=== PATIENT | male | born 1955 | race Caucasian/White ===

== ENCOUNTER 2017-11-23 16:57 | Emergency (ER) | payer MEDICARE ==
[~2017-11-23] VITALS: Ht 180.3 cm; Wt 91.0 kg
[~2017-11-23 16:57] MED LIST: ALPR0.25 PO; ASPI-496 PO; ASPI-650 PO; BACL20TA PO; CARB200T4 PO; CITA20TA9 PO; CYCL-259 PO; DONE5TAB7 PO; FOLI0.8T2 PO; GABA400C PO; LISI-167 PO; LOVA20TA2 PO; METO25TA4 PO; MORP-52 PO; OMEP-110 PO; OXYC10TA47 PO; OXYC1TAB9 PO; PRED50TA PO; RISP2TAB35 PO; SENN1TAB7 PO; TEMA15CA6 PO
[2017-11-23] MEDS ORDERED: HYDROcodone/APAP 5/325 TABLET ONE (17:21)
[2017-11-23 17:28] VITALS: BP 113/57
[2017-11-23] MEDS ORDERED: HYDROcodone/APAP 5/325 TABLET PO ONE (17:30)
[2017-11-23 17:54] LABS: BASOPHILS # (AUTO) 0.12 x10^3/uL (0-0.1); BASOPHILS % (AUTO) 1 % (0-1); EOSINOPHILS # (AUTO) 0.08 x10^3/uL (0-0.4); EOSINOPHILS % (AUTO) 1 % (1-7); LYMPHOCYTES # (AUTO) 2.08 x10^3/uL (1-3.4); LYMPHOCYTES % (AUTO) 24 % (22-44); MD NO; MEAN CORPUSCULAR HEMOGLOBIN 31.8 pg (27.5-34.5); MEAN CORPUSCULAR HGB CONC 33.1 g/dL (33.2-36.2); MEAN CORPUSCULAR VOLUME 95.9 fL (81-97); MEAN PLATELET VOLUME 8.3 fL (7.4-10.4); MONOCYTES # (AUTO) 0.69 x10^3/uL (0.2-0.8); MONOCYTES % (AUTO) 8 % (2-9); NEUTROPHILS # (AUTO) 5.76 x10^3/uL (1.8-6.8); NEUTROPHILS % (AUTO) 66 % (42-75); PLATELET COUNT 299 x10^3/uL (130-400); RED BLOOD COUNT 4.07 x10^6/uL (4.38-5.82); RED CELL DISTRIBUTION WIDTH 13.5 % (9.4-14.8)
[2017-11-23 18:04] LABS: PROTHROMBIN TIME 10.4 Seconds (9.6-11.5)
[2017-11-23 18:05] LABS: ALBUMIN 3.6 g/dL (3.4-5.0); ANION GAP 13 mmol/L (5-15); CALCIUM 7.9 mg/dL (8.5-10.1); CHLORIDE 112 mmol/L (98-107)
[2017-11-23 18:11] LABS: ALANINE AMINOTRANSFERASE 22 U/L (12-78); ALKALINE PHOSPHATASE 107 U/L (45-117); BILIRUBIN,TOTAL 0.2 mg/dL (0.2-1.0); CREATININE 1.16 mg/dL (0.7-1.3); TROPONIN I < 0.015 ng/mL (0.000-0.045)
[2017-11-23] MEDS ORDERED: MORPHINE SULFATE 4 MG/ML, 1ML ONE (18:26)
[2017-11-23] MEDS ORDERED: MORPHINE SULFATE 4 MG/ML, 1ML IVPush PRN (18:30)
== END 2017-11-23 18:51 | disposition left against medical advice (07) ==
LOC: ED 18:45
DX: R07.89 Other chest pain (principal); I10 Essential (primary) hypertension; E78.5 Hyperlipidemia, unspecified; F31.9 Bipolar disorder, unspecified; G30.9 Alzheimer's disease, unspecified; F02.80 Dementia in other diseases classified elsewhere, unspecified severity, without behavioral disturbance, psychotic disturbance, mood disturbance, and anxiety; F17.200 Nicotine dependence, unspecified, uncomplicated
CPT/HCPCS: 36415; 71045; 80053; 83690; 84484; 85025; 85379; 85610; 85730; 93005; 99285

== ENCOUNTER 2017-11-29 21:10 | Emergency (ER) | payer SELFPAY ==
[~2017-11-29] VITALS: Ht 175.3 cm; Wt 90.0 kg
[2017-11-29] MEDS ORDERED: MORPHINE SULFATE 4 MG/ML, 1ML ONE (21:57)
[2017-11-29] MEDS ORDERED: ASPIRIN 81 MG TABLET CHEW ONE (21:57)
[2017-11-29] MEDS ORDERED: ASPIRIN 81 MG TABLET CHEW PO ONE (22:00)
[2017-11-29] MEDS: MORPHINE SULFATE 4 MG/ML, 1ML IVPush PRN (22:01)
[2017-11-29 22:36] LABS: BASOPHILS # (AUTO) 0.05 x10^3/uL (0-0.1); BASOPHILS % (AUTO) 1 % (0-1); EOSINOPHILS # (AUTO) 0.14 x10^3/uL (0-0.4); EOSINOPHILS % (AUTO) 2 % (1-7); LYMPHOCYTES # (AUTO) 1.77 x10^3/uL (1-3.4); LYMPHOCYTES % (AUTO) 29 % (22-44); MD NO; MEAN CORPUSCULAR HEMOGLOBIN 32.3 pg (27.5-34.5); MEAN CORPUSCULAR HGB CONC 33.8 g/dL (33.2-36.2); MEAN CORPUSCULAR VOLUME 95.4 fL (81-97); MEAN PLATELET VOLUME 7.6 fL (7.4-10.4); MONOCYTES # (AUTO) 0.58 x10^3/uL (0.2-0.8); MONOCYTES % (AUTO) 9 % (2-9); NEUTROPHILS # (AUTO) 3.69 x10^3/uL (1.8-6.8); NEUTROPHILS % (AUTO) 59 % (42-75); PLATELET COUNT 359 x10^3/uL (130-400); RED BLOOD COUNT 3.88 x10^6/uL (4.38-5.82); RED CELL DISTRIBUTION WIDTH 13.5 % (9.4-14.8)
[2017-11-29 22:50] LABS: ALANINE AMINOTRANSFERASE 19 U/L (12-78); ALBUMIN 3.1 g/dL (3.4-5.0); ANION GAP 11 mmol/L (5-15); CALCIUM 7.8 mg/dL (8.5-10.1); CHLORIDE 112 mmol/L (98-107); CREATININE 0.85 mg/dL (0.7-1.3)
[2017-11-29 22:54] LABS: ALKALINE PHOSPHATASE 113 U/L (45-117); BILIRUBIN,TOTAL 0.2 mg/dL (0.2-1.0); TOTAL PROTEIN 6.2 g/dL (6.4-8.2); TROPONIN I < 0.015 ng/mL (0.000-0.045)
[2017-11-29 23:52] VITALS: BP 101/65
[2017-11-30] MEDS ORDERED: MORPHINE SULFATE 4 MG/ML, 1ML ONE (00:25)
[2017-11-30] MEDS: MORPHINE SULFATE 4 MG/ML, 1ML IVPush PRN (00:27)
[2017-11-30 00:39] LABS: TROPONIN I < 0.015 ng/mL (0.000-0.045)
== END 2017-11-30 01:21 | disposition home or self-care (01) ==
LOC: ED 21:31
DX: R07.89 Other chest pain (principal); I10 Essential (primary) hypertension; I25.2 Old myocardial infarction; G30.9 Alzheimer's disease, unspecified; F02.80 Dementia in other diseases classified elsewhere, unspecified severity, without behavioral disturbance, psychotic disturbance, mood disturbance, and anxiety; F31.9 Bipolar disorder, unspecified; E78.5 Hyperlipidemia, unspecified; F17.200 Nicotine dependence, unspecified, uncomplicated; Z95.0 Presence of cardiac pacemaker; Z91.018 Allergy to other foods; Z88.6 Allergy status to analgesic agent
CPT/HCPCS: 36415; 71045; 80053; 84484; 85025; 93005; 96374; 96376

== ENCOUNTER 2017-12-13 14:44 | Emergency (ER) | payer SELFPAY ==
[~2017-12-13] VITALS: Ht 180.3 cm; Wt 81.0 kg
[2017-12-13] MEDS ORDERED: MAALOX/HYOSCYAMINE/LIDOCAINE 45 ML BTL PO ONE (15:00)
[2017-12-13] MEDS ORDERED: FAMOTIDINE 20 MG TABLET PO ONE (15:00)
[2017-12-13] MEDS ORDERED: LORazepam 1MG TABLET PO ONE (15:00)
[2017-12-13] MEDS ORDERED: FAMOTIDINE 20 MG TABLET ONE (15:12)
[2017-12-13] MEDS ORDERED: LORazepam 1MG TABLET ONE (15:13)
[2017-12-13] MEDS ORDERED: MAALOX/HYOSCYAMINE/LIDOCAINE 45 ML BTL ONE (15:13)
[2017-12-13 15:28] LABS: BASOPHILS # (AUTO) 0.05 x10^3/uL (0-0.1); BASOPHILS % (AUTO) 1 % (0-1); EOSINOPHILS # (AUTO) 0.11 x10^3/uL (0-0.4); EOSINOPHILS % (AUTO) 1 % (1-7); LYMPHOCYTES # (AUTO) 2.25 x10^3/uL (1-3.4); LYMPHOCYTES % (AUTO) 28 % (22-44); MD NO; MEAN CORPUSCULAR HGB CONC 33.6 g/dL (33.2-36.2); MEAN CORPUSCULAR VOLUME 95.2 fL (81-97); MEAN PLATELET VOLUME 8.2 fL (7.4-10.4); MONOCYTES # (AUTO) 1.01 x10^3/uL (0.2-0.8); MONOCYTES % (AUTO) 13 % (2-9); NEUTROPHILS # (AUTO) 4.55 x10^3/uL (1.8-6.8); NEUTROPHILS % (AUTO) 57 % (42-75); PLATELET COUNT 255 x10^3/uL (130-400); RED BLOOD COUNT 4.16 x10^6/uL (4.38-5.82); RED CELL DISTRIBUTION WIDTH 13.8 % (9.4-14.8)
[2017-12-13 15:37] LABS: CHLORIDE 109 mmol/L (98-107)
[2017-12-13 15:47] LABS: ALANINE AMINOTRANSFERASE 19 U/L (12-78); ALBUMIN 3.7 g/dL (3.4-5.0); ALKALINE PHOSPHATASE 102 U/L (45-117); ANION GAP 8 mmol/L (5-15); BILIRUBIN,TOTAL 0.3 mg/dL (0.2-1.0); CALCIUM 8.6 mg/dL (8.5-10.1); CREATININE 1.03 mg/dL (0.7-1.3); TOTAL PROTEIN 7.1 g/dL (6.4-8.2); TROPONIN I < 0.015 ng/mL (0.000-0.045)
[2017-12-13] MEDS ORDERED: OXYcodone/APAP 5/325MG TABLET ONE (16:21)
[2017-12-13] MEDS ORDERED: MORPHINE SULFATE 4 MG/ML, 1ML ONE (16:25)
[2017-12-13] MEDS ORDERED: morphine SULFATE 10 MG/ML, 1ML IVPush ONE (16:30)
[2017-12-13] MEDS ORDERED: OXYcodone/APAP 5/325MG TABLET PO ONE (16:30)
[2017-12-13] MEDS ORDERED: MORPHINE SULFATE 4 MG/ML, 1ML IVPush PRN (16:30)
[2017-12-13] MEDS ORDERED: OMNIPAQUE 350 MG/ML, 100ML BOTTLE ONE (16:52)
[2017-12-13 18:08] VITALS: BP 118/70
== END 2017-12-13 18:58 | disposition home or self-care (01) ==
LOC: ED 18:45
DX: R07.89 Other chest pain (principal); E78.5 Hyperlipidemia, unspecified; F02.80 Dementia in other diseases classified elsewhere, unspecified severity, without behavioral disturbance, psychotic disturbance, mood disturbance, and anxiety; F31.9 Bipolar disorder, unspecified; G30.9 Alzheimer's disease, unspecified; I10 Essential (primary) hypertension; I25.2 Old myocardial infarction; Z79.82 Long term (current) use of aspirin; Z87.891 Personal history of nicotine dependence; Z95.0 Presence of cardiac pacemaker
CPT/HCPCS: 36415; 71045; 71275; 80053; 84484; 85025; 93005; 96374; 99285; Q9967

== ENCOUNTER 2017-12-26 15:32 | Inpatient (IN) | payer MEDICARE, OTHER ==
[~2017-12-26] VITALS: Ht 180.3 cm; Wt 87.7 kg
[2017-12-26] MEDS ORDERED: MORPHINE SULFATE 4 MG/ML, 1ML ONE ×2 (15:59→17:00)
[2017-12-26] MEDS ORDERED: SODIUM CHLORIDE FLUSH 10ML SYR IVF ONE (16:00)
[2017-12-26] MEDS: MORPHINE SULFATE 4 MG/ML, 1ML IVPush PRN ×2 (16:14→17:01)
[2017-12-26 16:21] LABS: BASOPHILS # (AUTO) 0.01 x10^3/uL (0-0.1); BASOPHILS % (AUTO) 0 % (0-1); EOSINOPHILS # (AUTO) 0.08 x10^3/uL (0-0.4); EOSINOPHILS % (AUTO) 1 % (1-7); LYMPHOCYTES % (AUTO) 18 % (22-44); MD NO; MEAN CORPUSCULAR HEMOGLOBIN 32.4 pg (27.5-34.5); MEAN CORPUSCULAR HGB CONC 34.1 g/dL (33.2-36.2); MEAN CORPUSCULAR VOLUME 94.9 fL (81-97); MEAN PLATELET VOLUME 7.9 fL (7.4-10.4); MONOCYTES # (AUTO) 0.91 x10^3/uL (0.2-0.8); MONOCYTES % (AUTO) 13 % (2-9); NEUTROPHILS # (AUTO) 4.78 x10^3/uL (1.8-6.8); NEUTROPHILS % (AUTO) 68 % (42-75); PLATELET COUNT 326 x10^3/uL (130-400); RED BLOOD COUNT 4.32 x10^6/uL (4.38-5.82); RED CELL DISTRIBUTION WIDTH 13.9 % (9.4-14.8)
[2017-12-26 16:33] LABS: ALBUMIN 3.5 g/dL (3.4-5.0); ANION GAP 11 mmol/L (5-15); CALCIUM 8.7 mg/dL (8.5-10.1); CHLORIDE 108 mmol/L (98-107)
[2017-12-26 16:39] LABS: ALANINE AMINOTRANSFERASE 20 U/L (12-78); ALKALINE PHOSPHATASE 132 U/L (45-117); BILIRUBIN,TOTAL 0.4 mg/dL (0.2-1.0); CREATININE 1.05 mg/dL (0.7-1.3); TOTAL PROTEIN 7.2 g/dL (6.4-8.2); TROPONIN I < 0.015 ng/mL (0.000-0.045)
[2017-12-26] MEDS ORDERED: ONDANSETRON 2MG/ML, 2ML IVPush PRN (17:00)
[2017-12-26] MEDS ORDERED: LORazepam 2 MG/ML, 1ML IVPush PRN (17:00)
[2017-12-26] MEDS ORDERED: PROMETHAZINE 25 MG/ML, 1ML IM PRN (17:00)
[2017-12-26] MEDS ORDERED: ENOXAPARIN 40 MG/0.4 ML SQ SCH (17:00)
[2017-12-26] MEDS ORDERED: ONDANSETRON ODT 4 MG PO PRN (17:00)
[2017-12-26] MEDS ORDERED: METOCLOPRAMIDE 5 MG/ML, 2ML IVPush PRN (17:00)
[2017-12-26] MEDS ORDERED: NICOTINE 21 MG/24 HR PATCH.TD24 TD SCH (17:00)
[2017-12-26 18:20] VITALS: BP 164/93
[2017-12-26] MEDS: ACETAMINOPHEN 325 MG TABLET PO PRN (18:28)
[2017-12-26] MEDS: PANTOPRAZOLE 40 MG IV IVPush SCH (18:28)
[2017-12-26] MEDS: SODIUM CHLORIDE 0.9% 1,000 ML IV SCH (18:29)
[2017-12-26] MEDS ORDERED: MAALOX/HYOSCYAMINE/LIDOCAINE 45 ML BTL PO ONE (20:00)
[2017-12-26 20:32] VITALS: BP 144/85
[2017-12-26 22:23] VITALS: BP 126/80
[2017-12-26 22:50] LABS: TROPONIN I < 0.015 ng/mL (0.000-0.045)
[2017-12-27] MEDS: SODIUM CHLORIDE 0.9% 1,000 ML IV SCH ×2 (01:39→08:59)
[2017-12-27] MEDS: GUAIFENESIN 100 MG/5 ML, 10ML UDC PO PRN ×2 (01:40→08:46)
[2017-12-27 01:44] VITALS: BP 149/87
[2017-12-27] MEDS: NITROGLYCERIN 0.4 MG BOTTLE (25 TABS) SL PRN ×2 (01:46→02:06)
[2017-12-27 02:00] VITALS: BP 128/78
[2017-12-27 02:12] VITALS: BP 109/66
[2017-12-27 05:39] LABS: TROPONIN I < 0.015 ng/mL (0.000-0.045)
[2017-12-27 05:45] LABS: THYROID STIMULATING HORMONE 0.411 mIU/L (0.358-3.740)
[2017-12-27 05:52] LABS: BASOPHILS # (AUTO) 0.03 x10^3/uL (0-0.1); BASOPHILS % (AUTO) 1 % (0-1); EOSINOPHILS # (AUTO) 0.11 x10^3/uL (0-0.4); EOSINOPHILS % (AUTO) 2 % (1-7); LYMPHOCYTES # (AUTO) 0.96 x10^3/uL (1-3.4); LYMPHOCYTES % (AUTO) 18 % (22-44); MD NO; MEAN CORPUSCULAR HEMOGLOBIN 31.8 pg (27.5-34.5); MEAN CORPUSCULAR HGB CONC 33.4 g/dL (33.2-36.2); MEAN CORPUSCULAR VOLUME 95.3 fL (81-97); MEAN PLATELET VOLUME 8.1 fL (7.4-10.4); MONOCYTES # (AUTO) 0.64 x10^3/uL (0.2-0.8); MONOCYTES % (AUTO) 12 % (2-9); NEUTROPHILS # (AUTO) 3.68 x10^3/uL (1.8-6.8); NEUTROPHILS % (AUTO) 68 % (42-75); PLATELET COUNT 276 x10^3/uL (130-400); RED BLOOD COUNT 3.74 x10^6/uL (4.38-5.82)
[2017-12-27] MEDS: PANTOPRAZOLE 40 MG IV IVPush SCH (06:26)
[2017-12-27 07:00] VITALS: BP 125/75
[2017-12-27] MEDS: ACETAMINOPHEN 325 MG TABLET PO PRN (08:46)
== END 2017-12-27 13:05 | disposition home or self-care (01) | DRG 303 ==
LOC: ED 16:26 → EDIP 16:28 → 5SO 18:18 → DCLOUNGE 12-27 12:59
PROVIDERS: ADMIT Hospitalist; ATTEND Hospitalist
DX: I25.10 Atherosclerotic heart disease of native coronary artery without angina pectoris (principal); E87.2 Acidosis; J98.11 Atelectasis; R10.13 Epigastric pain; G30.9 Alzheimer's disease, unspecified; F02.80 Dementia in other diseases classified elsewhere, unspecified severity, without behavioral disturbance, psychotic disturbance, mood disturbance, and anxiety; R07.9 Chest pain, unspecified; E78.5 Hyperlipidemia, unspecified; F17.210 Nicotine dependence, cigarettes, uncomplicated; F31.9 Bipolar disorder, unspecified; F41.9 Anxiety disorder, unspecified; I44.30 Unspecified atrioventricular block; I11.9 Hypertensive heart disease without heart failure; G89.29 Other chronic pain; R74.8 Abnormal levels of other serum enzymes; I25.2 Old myocardial infarction; Z59.0 Homelessness; Z95.0 Presence of cardiac pacemaker
CPT/HCPCS: 36415; 71045; 80053; 83605; 84443; 84484; 85025; 93005; 96374; 96376; J1650; C9113; J2060; J7030

== ENCOUNTER 2018-01-04 22:29 | Emergency (ER) | payer MEDICARE, OTHER ==
[~2018-01-04] VITALS: Ht 180.3 cm; Wt 95.0 kg
[2018-01-04] MEDS ORDERED: OXYcodone/APAP 5/325MG TABLET ONE (22:54)
[2018-01-04] MEDS ORDERED: OXYcodone/APAP 5/325MG TABLET PO ONE (23:00)
[2018-01-04 23:28] LABS: BASOPHILS # (AUTO) 0.04 x10^3/uL (0-0.1); BASOPHILS % (AUTO) 1 % (0-1); EOSINOPHILS # (AUTO) 0.11 x10^3/uL (0-0.4); EOSINOPHILS % (AUTO) 2 % (1-7); LYMPHOCYTES # (AUTO) 1.67 x10^3/uL (1-3.4); LYMPHOCYTES % (AUTO) 25 % (22-44); MD NO; MEAN CORPUSCULAR HEMOGLOBIN 31.4 pg (27.5-34.5); MEAN CORPUSCULAR HGB CONC 33.2 g/dL (33.2-36.2); MEAN CORPUSCULAR VOLUME 94.5 fL (81-97); MEAN PLATELET VOLUME 7.9 fL (7.4-10.4); MONOCYTES # (AUTO) 0.92 x10^3/uL (0.2-0.8); MONOCYTES % (AUTO) 14 % (2-9); NEUTROPHILS # (AUTO) 4.05 x10^3/uL (1.8-6.8); NEUTROPHILS % (AUTO) 60 % (42-75); PLATELET COUNT 285 x10^3/uL (130-400); RED BLOOD COUNT 4.31 x10^6/uL (4.38-5.82); RED CELL DISTRIBUTION WIDTH 14.4 % (9.4-14.8)
[2018-01-04 23:37] LABS: ALBUMIN 3.5 g/dL (3.4-5.0); ANION GAP 5 mmol/L (5-15); CALCIUM 8.5 mg/dL (8.5-10.1); CHLORIDE 111 mmol/L (98-107)
[2018-01-04 23:41] LABS: TROPONIN I < 0.015 ng/mL (0.000-0.045)
[2018-01-04 23:51] VITALS: BP 130/82
== END 2018-01-05 00:45 | disposition home or self-care (01) ==
LOC: ED 23:44
DX: R07.2 Precordial pain (principal); I25.2 Old myocardial infarction; I10 Essential (primary) hypertension; E78.5 Hyperlipidemia, unspecified; G30.9 Alzheimer's disease, unspecified; F02.80 Dementia in other diseases classified elsewhere, unspecified severity, without behavioral disturbance, psychotic disturbance, mood disturbance, and anxiety
CPT/HCPCS: 36415; 71045; 80048; 82040; 84484; 85025; 93005; 99285

== ENCOUNTER 2018-01-27 21:28 | Emergency (ER) | payer OTHER ==
[~2018-01-27] VITALS: Ht 180.3 cm; Wt 80.0 kg
[~2018-01-27 21:28] MED LIST changes: +OXYC-432 PO; -OXYC1TAB9 PO
[2018-01-27 21:33] VITALS: BP 115/67
[2018-01-27 21:50] LABS: BASOPHILS # (AUTO) 0.04 x10^3/uL (0-0.1); BASOPHILS % (AUTO) 1 % (0-1); EOSINOPHILS # (AUTO) 0.11 x10^3/uL (0-0.4); EOSINOPHILS % (AUTO) 2 % (1-7); LYMPHOCYTES # (AUTO) 1.98 x10^3/uL (1-3.4); LYMPHOCYTES % (AUTO) 34 % (22-44); MD NO; MEAN CORPUSCULAR HEMOGLOBIN 31.1 pg (27.5-34.5); MEAN CORPUSCULAR HGB CONC 33.3 g/dL (33.2-36.2); MEAN CORPUSCULAR VOLUME 93.4 fL (81-97); MEAN PLATELET VOLUME 7.6 fL (7.4-10.4); MONOCYTES % (AUTO) 14 % (2-9); NEUTROPHILS # (AUTO) 2.82 x10^3/uL (1.8-6.8); NEUTROPHILS % (AUTO) 49 % (42-75); PLATELET COUNT 313 x10^3/uL (130-400); RED BLOOD COUNT 4.14 x10^6/uL (4.38-5.82); RED CELL DISTRIBUTION WIDTH 14.1 % (9.4-14.8)
[2018-01-27] MEDS ORDERED: SODIUM CHLORIDE FLUSH 10ML SYR IVF ONE (22:00)
[2018-01-27 22:01] LABS: ALBUMIN 3.5 g/dL (3.4-5.0); ANION GAP 8 mmol/L (5-15); CALCIUM 8.2 mg/dL (8.5-10.1); CHLORIDE 106 mmol/L (98-107); CREATININE 0.87 mg/dL (0.7-1.3)
[2018-01-27 22:04] LABS: TROPONIN I < 0.015 ng/mL (0.000-0.045)
== END 2018-01-27 22:53 | disposition left against medical advice (07) ==
LOC: ED 22:37
DX: R07.2 Precordial pain (principal); I10 Essential (primary) hypertension; I25.2 Old myocardial infarction; G30.9 Alzheimer's disease, unspecified; F02.80 Dementia in other diseases classified elsewhere, unspecified severity, without behavioral disturbance, psychotic disturbance, mood disturbance, and anxiety; E78.5 Hyperlipidemia, unspecified; M54.9 Dorsalgia, unspecified; G89.29 Other chronic pain; Z72.9 Problem related to lifestyle, unspecified; F10.220 Alcohol dependence with intoxication, uncomplicated; F31.9 Bipolar disorder, unspecified; Z59.0 Homelessness; F17.200 Nicotine dependence, unspecified, uncomplicated
CPT/HCPCS: 36415; 71045; 80048; 80307; 82040; 84484; 85025; 93005; 99285

== ENCOUNTER 2018-01-31 07:30 | Emergency (ER) | payer OTHER ==
[~2018-01-31] VITALS: Ht 180.3 cm; Wt 80.0 kg
[2018-01-31 07:36] VITALS: BP 150/102
[2018-01-31] MEDS ORDERED: LORazepam 1MG TABLET ONE (07:55)
[2018-01-31] MEDS ORDERED: LORazepam 1MG TABLET PO ONE (08:00)
[2018-01-31 08:29] LABS: AMPHETAMINE SCREEN, URINE Positive (Negative); BARBITURATE SCREEN, URINE Negative (Negative); BENZODIAZEPINE SCREEN, URINE Negative (Negative); CANNABINOID SCREEN, URINE Negative (Negative); COCAINE SCREEN, URINE Negative (Negative); METHADONE SCREEN, URINE Negative (Negative); OPIATE SCREEN, URINE Negative (Negative)
[2018-01-31 08:40] LABS: BASOPHILS # (AUTO) 0.01 x10^3/uL (0-0.1); BASOPHILS % (AUTO) 0 % (0-1); EOSINOPHILS # (AUTO) 0.05 x10^3/uL (0-0.4); EOSINOPHILS % (AUTO) 1 % (1-7); LYMPHOCYTES # (AUTO) 1.67 x10^3/uL (1-3.4); LYMPHOCYTES % (AUTO) 23 % (22-44); MD NO; MEAN CORPUSCULAR HEMOGLOBIN 30.8 pg (27.5-34.5); MEAN CORPUSCULAR HGB CONC 33.1 g/dL (33.2-36.2); MEAN PLATELET VOLUME 7.7 fL (7.4-10.4); MONOCYTES % (AUTO) 12 % (2-9); NEUTROPHILS # (AUTO) 4.65 x10^3/uL (1.8-6.8); NEUTROPHILS % (AUTO) 64 % (42-75); PLATELET COUNT 330 x10^3/uL (130-400); RED BLOOD COUNT 4.67 x10^6/uL (4.38-5.82); RED CELL DISTRIBUTION WIDTH 14.6 % (9.4-14.8)
[2018-01-31 08:49] LABS: ALBUMIN 4.3 g/dL (3.4-5.0); ANION GAP 12 mmol/L (5-15); CALCIUM 9.4 mg/dL (8.5-10.1); CHLORIDE 106 mmol/L (98-107); CREATININE 0.99 mg/dL (0.7-1.3)
[2018-01-31 08:53] LABS: TROPONIN I < 0.015 ng/mL (0.000-0.045)
== END 2018-01-31 09:34 | disposition home or self-care (01) ==
LOC: ED 09:26
DX: F15.129 Other stimulant abuse with intoxication, unspecified (principal); Z72.89 Other problems related to lifestyle; I10 Essential (primary) hypertension; J18.9 Pneumonia, unspecified organism; G30.9 Alzheimer's disease, unspecified; F02.80 Dementia in other diseases classified elsewhere, unspecified severity, without behavioral disturbance, psychotic disturbance, mood disturbance, and anxiety; I25.2 Old myocardial infarction; Z95.0 Presence of cardiac pacemaker; Z79.899 Other long term (current) drug therapy
CPT/HCPCS: 36415; 71045; 80048; 80307; 82040; 84484; 85025; 93005; 99285

== ENCOUNTER 2018-02-05 15:13 | Observation (INO) | payer MEDICARE, OTHER ==
[~2018-02-05] VITALS: Ht 180.3 cm; Wt 82.0 kg
[2018-02-05 15:52] LABS: BASOPHILS # (AUTO) 0.04 x10^3/uL (0-0.1); BASOPHILS % (AUTO) 1 % (0-1); EOSINOPHILS # (AUTO) 0.12 x10^3/uL (0-0.4); EOSINOPHILS % (AUTO) 2 % (1-7); LYMPHOCYTES % (AUTO) 27 % (22-44); MD NO; MEAN CORPUSCULAR HEMOGLOBIN 31.3 pg (27.5-34.5); MEAN CORPUSCULAR VOLUME 94.8 fL (81-97); MEAN PLATELET VOLUME 7.6 fL (7.4-10.4); MONOCYTES % (AUTO) 12 % (2-9); NEUTROPHILS # (AUTO) 4.04 x10^3/uL (1.8-6.8); NEUTROPHILS % (AUTO) 60 % (42-75); PLATELET COUNT 253 x10^3/uL (130-400); RED BLOOD COUNT 3.87 x10^6/uL (4.38-5.82); RED CELL DISTRIBUTION WIDTH 14.6 % (9.4-14.8)
[2018-02-05 16:01] LABS: ALBUMIN 3.3 g/dL (3.4-5.0); ANION GAP 10 mmol/L (5-15); CALCIUM 8.1 mg/dL (8.5-10.1); CHLORIDE 110 mmol/L (98-107); CREATININE 0.82 mg/dL (0.7-1.3); SALICYLATE LEVEL 4.3 mg/dL (2.8-20.0)
[2018-02-05 16:05] LABS: ACETAMINOPHEN < 2 mcg/mL (10-30)
[2018-02-05 16:15] LABS: AMPHETAMINE SCREEN, URINE Negative (Negative); BARBITURATE SCREEN, URINE Negative (Negative); BENZODIAZEPINE SCREEN, URINE Negative (Negative); CANNABINOID SCREEN, URINE Negative (Negative); COCAINE SCREEN, URINE Negative (Negative); METHADONE SCREEN, URINE Negative (Negative); OPIATE SCREEN, URINE Negative (Negative)
[2018-02-05] MEDS ORDERED: ACETAMINOPHEN 325 MG TABLET PO PRN (20:30)
[2018-02-05] MEDS ORDERED: BISACODYL 10 MG SUPP PR PRN (20:30)
[2018-02-05] MEDS ORDERED: ONDANSETRON ODT 4 MG PO PRN (20:30)
[2018-02-05] MEDS ORDERED: NICOTINE 21 MG/24 HR PATCH.TD24 TD SCH (20:30)
[2018-02-05] MEDS ORDERED: POLYETHYLENE GLYCOL 17 GM PACKET PO PRN (20:30)
[2018-02-05] MEDS ORDERED: DIPHENHYDRAMINE 50 MG CAPSULE PO PRN (20:30)
[2018-02-05 21:33] VITALS: BP 118/68
[2018-02-06] MEDS ORDERED: LORazepam 1MG TABLET PO PRN (08:30)
[2018-02-06 08:34] VITALS: BP 134/84
[2018-02-06] MEDS ORDERED: SENNA/DOCUSATE TABLET PO SCH (09:00)
[2018-02-06] MEDS ORDERED: SERT100T PO (09:30)
[2018-02-06] MEDS ORDERED: CARB200C PO (09:32)
[2018-02-06] MEDS ORDERED: LISI-167 PO (09:33)
[2018-02-06] MEDS ORDERED: BACL20TA PO (09:34)
[2018-02-06] MEDS ORDERED: LOVA20TA2 PO (09:34)
[2018-02-06] MEDS ORDERED: OMEP-110 PO (09:35)
[2018-02-06] MEDS ORDERED: RISP2TAB91 PO (09:37)
[2018-02-06] MEDS ORDERED: METO25TA4 PO (09:39)
[2018-02-06] MEDS ORDERED: CARBAMAZEPINE 100 MG TAB.CHEW PO SCH (21:00)
[2018-02-06] MEDS ORDERED: METOPROLOL TARTRATE 25 MG TABLET PO SCH (21:00)
[2018-02-06] MEDS ORDERED: SERTRALINE 100MG TABLET PO SCH (21:00)
[2018-02-06] MEDS ORDERED: BACLOFEN 10 MG TABLET PO SCH (21:00)
[2018-02-06] MEDS ORDERED: RISPERIDONE 2 MG TABLET PO SCH (21:00)
[2018-02-07] MEDS ORDERED: OMEPRAZOLE 20 MG CAPSULE.DR PO SCH (07:30)
[2018-02-07] MEDS ORDERED: LOVASTATIN 20 MG TABLET PO SCH (09:00)
[2018-02-07] MEDS ORDERED: LISINOPRIL 10 MG TABLET PO SCH (09:00)
== END 2018-02-06 16:41 ==
LOC: ED 15:47 → 2N 21:48
PROVIDERS: ADMIT Internal Medicine; ATTEND Internal Medicine
DX: R45.851 Suicidal ideations (principal); F33.2 Major depressive disorder, recurrent severe without psychotic features; D64.9 Anemia, unspecified; E44.1 Mild protein-calorie malnutrition; E78.5 Hyperlipidemia, unspecified; F17.210 Nicotine dependence, cigarettes, uncomplicated; G89.29 Other chronic pain; I10 Essential (primary) hypertension; I25.2 Old myocardial infarction; Z95.0 Presence of cardiac pacemaker; E16.2 Hypoglycemia, unspecified
CPT/HCPCS: 36415; 80048; 80307; 80329; 82040; 85025; 99285; G0378; G0480

== ENCOUNTER 2018-03-03 13:32 | Observation (INO) | payer MEDICARE ==
[~2018-03-03] VITALS: Ht 180.3 cm; Wt 97.8 kg
[~2018-03-03 13:32] MED LIST changes: +CARB200C PO; +RISP2TAB91 PO; +SERT100T PO
[2018-03-03] MEDS ORDERED: ASPI-496 PO (13:59)
[2018-03-03] MEDS ORDERED: MORP-52 PO (13:59)
[2018-03-03] MEDS ORDERED: MORPHINE SULFATE 4 MG/ML, 1ML ONE (14:25)
[2018-03-03] MEDS ORDERED: ASPIRIN 81 MG TABLET CHEW ONE (14:25)
[2018-03-03] MEDS ORDERED: NITROGLYCERIN SINGLE TAB 0.4 MG SL ONE (14:26)
[2018-03-03] MEDS ORDERED: ASPIRIN 81 MG TABLET CHEW PO ONE (14:30)
[2018-03-03] MEDS ORDERED: MORPHINE SULFATE 4 MG/ML, 1ML IVPush PRN (14:30)
[2018-03-03] MEDS ORDERED: NITROGLYCERIN SINGLE TAB 0.4 MG SL PRN (14:30)
[2018-03-03] MEDS ORDERED: SODIUM CHLORIDE FLUSH 10ML SYR IVF ONE (14:30)
[2018-03-03 14:48] LABS: BASOPHILS # (AUTO) 0.03 x10^3/uL (0-0.1); BASOPHILS % (AUTO) 0 % (0-1); EOSINOPHILS # (AUTO) 0.07 x10^3/uL (0-0.4); EOSINOPHILS % (AUTO) 1 % (1-7); LYMPHOCYTES # (AUTO) 1.47 x10^3/uL (1-3.4); LYMPHOCYTES % (AUTO) 19 % (22-44); MD NO; MEAN CORPUSCULAR HEMOGLOBIN 31.2 pg (27.5-34.5); MEAN CORPUSCULAR HGB CONC 34.2 g/dL (33.2-36.2); MEAN CORPUSCULAR VOLUME 91.1 fL (81-97); MEAN PLATELET VOLUME 7.9 fL (7.4-10.4); MONOCYTES # (AUTO) 0.93 x10^3/uL (0.2-0.8); MONOCYTES % (AUTO) 12 % (2-9); NEUTROPHILS # (AUTO) 5.34 x10^3/uL (1.8-6.8); NEUTROPHILS % (AUTO) 68 % (42-75); PLATELET COUNT 332 x10^3/uL (130-400); RED BLOOD COUNT 4.08 x10^6/uL (4.38-5.82); RED CELL DISTRIBUTION WIDTH 14.6 % (9.4-14.8)
[2018-03-03 14:59] LABS: ALANINE AMINOTRANSFERASE 65 U/L (12-78); ALBUMIN 3.5 g/dL (3.4-5.0); ANION GAP 12 mmol/L (5-15); CALCIUM 8.1 mg/dL (8.5-10.1); CHLORIDE 108 mmol/L (98-107); CREATININE 0.88 mg/dL (0.7-1.3)
[2018-03-03 15:03] LABS: ALKALINE PHOSPHATASE 109 U/L (45-117); BILIRUBIN,TOTAL 0.2 mg/dL (0.2-1.0); TOTAL PROTEIN 7.2 g/dL (6.4-8.2); TROPONIN I < 0.015 ng/mL (0.000-0.045)
[2018-03-03] MEDS ORDERED: SODIUM CHLORIDE 0.9% 1,000ML IVBOLUS ONE (15:30)
[2018-03-03] MEDS ORDERED: ACETAMINOPHEN 325 MG TABLET PO PRN (16:00)
[2018-03-03] MEDS ORDERED: ENALAPRILAT 1.25 MG/ML, 2ML IVPush PRN (16:00)
[2018-03-03] MEDS ORDERED: NITROGLYCERIN 0.4 MG BOTTLE (25 TABS) SL PRN (16:00)
[2018-03-03] MEDS ORDERED: BISACODYL 10 MG SUPP PR PRN (16:00)
[2018-03-03] MEDS ORDERED: ONDANSETRON ODT 4 MG PO PRN (16:00)
[2018-03-03] MEDS ORDERED: MAALOX/HYOSCYAMINE/LIDOCAINE 45 ML BTL PO PRN (16:00)
[2018-03-03] MEDS ORDERED: ENOXAPARIN 40 MG/0.4 ML SQ SCH (16:00)
[2018-03-03] MEDS ORDERED: NICOTINE 21 MG/24 HR PATCH.TD24 TD SCH (16:00)
[2018-03-03] MEDS ORDERED: POLYETHYLENE GLYCOL 17 GM PACKET PO PRN (16:00)
[2018-03-03] MEDS ORDERED: DOCUSATE 100 MG CAPSULE PO PRN (16:00)
[2018-03-03 16:52] LABS: THYROID STIMULATING HORMONE 1.48 mIU/L (0.358-3.740)
[2018-03-03 17:09] VITALS: BP 137/86
[2018-03-03] MEDS: SODIUM CHLORIDE 0.9% 1,000 ML IV SCH (17:20)
[2018-03-03] MEDS: PANTOPRAZOLE 40 MG IV IVPush SCH (17:20)
[2018-03-03] MEDS: HYDROcodone/APAP 5/325 TABLET PO PRN (17:21)
[2018-03-03 17:48] LABS: MICROSCOPIC NOT IND
[2018-03-03 17:49] LABS: CULTURE INDICATED? NO
[2018-03-03 18:23] LABS: AMPHETAMINE SCREEN, URINE Positive (Negative); BARBITURATE SCREEN, URINE Negative (Negative); BENZODIAZEPINE SCREEN, URINE Negative (Negative); CANNABINOID SCREEN, URINE Negative (Negative); COCAINE SCREEN, URINE Negative (Negative); METHADONE SCREEN, URINE Negative (Negative); OPIATE SCREEN, URINE Positive (Negative)
[2018-03-03 19:37] VITALS: BP 135/84
[2018-03-03] MEDS ORDERED: SERTRALINE 100MG TABLET PO SCH (21:00)
[2018-03-03] MEDS ORDERED: RISPERIDONE 2 MG TABLET PO SCH (21:00)
[2018-03-03] MEDS ORDERED: BACLOFEN 10 MG TABLET PO SCH (21:00)
[2018-03-03 21:33] VITALS: BP 117/86
[2018-03-03] MEDS: METOPROLOL TARTRATE 25 MG TABLET PO SCH (21:36)
[2018-03-03] MEDS: CARBAMAZEPINE 100 MG TAB.CHEW PO SCH (21:36)
[2018-03-03] MEDS: morphine SULFATE 10 MG/ML, 1ML IVPush PRN ×2 (21:44→22:19)
[2018-03-04 00:12] LABS: TROPONIN I < 0.015 ng/mL (0.000-0.045)
[2018-03-04 00:56] VITALS: BP 123/78
[2018-03-04] MEDS: SODIUM CHLORIDE 0.9% 1,000 ML IV SCH ×2 (01:16→09:25)
[2018-03-04 02:19] VITALS: BP 117/77
[2018-03-04] MEDS: morphine SULFATE 10 MG/ML, 1ML IVPush PRN ×3 (02:22→10:46)
[2018-03-04 05:36] VITALS: BP_SYST 124; BP_SYST 127; BP_DIAS 79; BP_DIAS 80
[2018-03-04 05:50] LABS: BASOPHILS # (AUTO) 0.04 x10^3/uL (0-0.1); BASOPHILS % (AUTO) 1 % (0-1); EOSINOPHILS # (AUTO) 0.13 x10^3/uL (0-0.4); EOSINOPHILS % (AUTO) 2 % (1-7); LYMPHOCYTES # (AUTO) 1.67 x10^3/uL (1-3.4); LYMPHOCYTES % (AUTO) 22 % (22-44); MD NO; MEAN CORPUSCULAR HEMOGLOBIN 31.1 pg (27.5-34.5); MEAN CORPUSCULAR HGB CONC 33.9 g/dL (33.2-36.2); MEAN CORPUSCULAR VOLUME 91.5 fL (81-97); MONOCYTES # (AUTO) 1.04 x10^3/uL (0.2-0.8); MONOCYTES % (AUTO) 13 % (2-9); NEUTROPHILS # (AUTO) 4.85 x10^3/uL (1.8-6.8); NEUTROPHILS % (AUTO) 63 % (42-75); PLATELET COUNT 284 x10^3/uL (130-400); RED BLOOD COUNT 3.66 x10^6/uL (4.38-5.82); RED CELL DISTRIBUTION WIDTH 14.6 % (9.4-14.8)
[2018-03-04 05:57] LABS: ANION GAP 5 mmol/L (5-15); CALCIUM 7.5 mg/dL (8.5-10.1); CHLORIDE 111 mmol/L (98-107); CHOLESTEROL, TOTAL 184 mg/dL (140-239); CREATININE 0.99 mg/dL (0.7-1.3); TRIGLYCERIDES 228 mg/dL (50-200); VLDL CHOLESTEROL 46 mg/dL (0-25)
[2018-03-04] MEDS ORDERED: ASPIRIN 325 MG TABLET EC PO SCH (06:00)
[2018-03-04 06:01] LABS: CHOL/HDL RATIO 4.3; HDL CHOL % 23 % (26-37); HDL CHOLESTEROL (DIRECT) 43 mg/dL (40-60); LDL CHOLESTEROL,CALCULATED 95 mg/dL (54-169); LDL/HDL RATIO 2.2 (0.5-3.0); TROPONIN I < 0.015 ng/mL (0.000-0.045)
[2018-03-04 06:33] VITALS: BP 138/84
[2018-03-04 07:25] VITALS: BP 134/86
[2018-03-04] MEDS: PANTOPRAZOLE 40 MG IV IVPush SCH (07:39)
[2018-03-04] MEDS ORDERED: LOVASTATIN 20 MG TABLET PO SCH (09:00)
[2018-03-04] MEDS: METOPROLOL TARTRATE 25 MG TABLET PO SCH (09:22)
[2018-03-04] MEDS: CARBAMAZEPINE 100 MG TAB.CHEW PO SCH (09:22)
[2018-03-04] MEDS: HYDROcodone/APAP 5/325 TABLET PO PRN (14:18)
== END 2018-03-04 15:28 | disposition home or self-care (01) ==
LOC: ED 14:04 → EDIP 15:13 → INTOOBSV 15:13 → 5SO 16:58 → UNDODISIN 03-04 15:28
PROVIDERS: ADMIT Hospitalist; ATTEND Hospitalist
DX: R07.89 Other chest pain (principal); R55 Syncope and collapse; R00.2 Palpitations; E78.5 Hyperlipidemia, unspecified; E87.2 Acidosis; F02.80 Dementia in other diseases classified elsewhere, unspecified severity, without behavioral disturbance, psychotic disturbance, mood disturbance, and anxiety; F15.90 Other stimulant use, unspecified, uncomplicated; F31.9 Bipolar disorder, unspecified; G30.9 Alzheimer's disease, unspecified; G89.29 Other chronic pain; I25.2 Old myocardial infarction; I11.0 Hypertensive heart disease with heart failure; I50.9 Heart failure, unspecified; K21.9 Gastro-esophageal reflux disease without esophagitis; F17.210 Nicotine dependence, cigarettes, uncomplicated; Z95.0 Presence of cardiac pacemaker
CPT/HCPCS: 36415; 71045; 80048; 80053; 80061; 80307; 81003; 83605; 83690; 83735; 83880; 84145; 84443; 84484; 85025; 85379; 93005; 93306; 96361; 96372; 96374; 96375; 96376; 99285; C9113; G0378; J1650; J2270; J7030

== ENCOUNTER 2018-03-06 13:04 | Emergency (ER) | payer SELFPAY ==
[~2018-03-06] VITALS: Ht 180.3 cm; Wt 88.0 kg
[2018-03-06 13:30] LABS: BASOPHILS # (AUTO) 0.06 x10^3/uL (0-0.1); BASOPHILS % (AUTO) 1 % (0-1); EOSINOPHILS # (AUTO) 0.06 x10^3/uL (0-0.4); EOSINOPHILS % (AUTO) 1 % (1-7); LYMPHOCYTES # (AUTO) 1.74 x10^3/uL (1-3.4); LYMPHOCYTES % (AUTO) 20 % (22-44); MD NO; MEAN CORPUSCULAR HEMOGLOBIN 31.4 pg (27.5-34.5); MEAN CORPUSCULAR HGB CONC 34.1 g/dL (33.2-36.2); MEAN CORPUSCULAR VOLUME 92.2 fL (81-97); MONOCYTES # (AUTO) 0.94 x10^3/uL (0.2-0.8); MONOCYTES % (AUTO) 11 % (2-9); NEUTROPHILS # (AUTO) 5.99 x10^3/uL (1.8-6.8); NEUTROPHILS % (AUTO) 68 % (42-75); PLATELET COUNT 368 x10^3/uL (130-400); RED BLOOD COUNT 4.43 x10^6/uL (4.38-5.82); RED CELL DISTRIBUTION WIDTH 14.8 % (9.4-14.8)
[2018-03-06 13:40] LABS: ALBUMIN 3.8 g/dL (3.4-5.0); ANION GAP 14 mmol/L (5-15); CALCIUM 8.6 mg/dL (8.5-10.1); CHLORIDE 105 mmol/L (98-107); INTERNATIONAL NORMALIZED RATIO 1.02 (0.93-1.1); PROTHROMBIN TIME 10.5 Seconds (9.6-11.5); SALICYLATE LEVEL 2.3 mg/dL (2.8-20.0)
[2018-03-06 13:44] LABS: TROPONIN I < 0.015 ng/mL (0.000-0.045)
[2018-03-06 13:50] LABS: ACETAMINOPHEN < 2 mcg/mL (10-30)
[2018-03-06 15:31] LABS: AMPHETAMINE SCREEN, URINE Negative (Negative); BARBITURATE SCREEN, URINE Negative (Negative); BENZODIAZEPINE SCREEN, URINE Negative (Negative); CANNABINOID SCREEN, URINE Negative (Negative); COCAINE SCREEN, URINE Negative (Negative); METHADONE SCREEN, URINE Negative (Negative); OPIATE SCREEN, URINE Negative (Negative)
[2018-03-06] MEDS ORDERED: ACETAMINOPHEN 325 MG TABLET ONE (15:50)
[2018-03-06 15:53] VITALS: BP 100/70
[2018-03-06] MEDS ORDERED: ACETAMINOPHEN 325 MG TABLET PO ONE (16:00)
== END 2018-03-06 16:24 | disposition home or self-care (01) ==
LOC: ED 14:08
DX: R07.89 Other chest pain (principal); F10.220 Alcohol dependence with intoxication, uncomplicated; R20.2 Paresthesia of skin; G89.29 Other chronic pain; I25.2 Old myocardial infarction; E78.5 Hyperlipidemia, unspecified; F31.9 Bipolar disorder, unspecified; G30.9 Alzheimer's disease, unspecified; F02.80 Dementia in other diseases classified elsewhere, unspecified severity, without behavioral disturbance, psychotic disturbance, mood disturbance, and anxiety; I10 Essential (primary) hypertension; Z95.0 Presence of cardiac pacemaker; Z79.899 Other long term (current) drug therapy
CPT/HCPCS: 36415; 71045; 80048; 80307; 80329; 82040; 84484; 85025; 85610; 85730; 93005; 99285; G0480

== ENCOUNTER 2018-04-27 21:19 | Emergency (ER) | payer SELFPAY ==
[~2018-04-27] VITALS: Ht 180.3 cm; Wt 91.0 kg
[~2018-04-27 21:19] MED LIST changes: -SENN1TAB7 PO; +SENN1TAB8 PO
[2018-04-27 22:10] LABS: BASOPHILS # (AUTO) 0.02 x10^3/uL (0-0.1); BASOPHILS % (AUTO) 0 % (0-1); EOSINOPHILS # (AUTO) 0.05 x10^3/uL (0-0.4); EOSINOPHILS % (AUTO) 1 % (1-7); LYMPHOCYTES # (AUTO) 1.87 x10^3/uL (1-3.4); LYMPHOCYTES % (AUTO) 22 % (22-44); MD NO; MEAN CORPUSCULAR HEMOGLOBIN 31.4 pg (27.5-34.5); MEAN CORPUSCULAR HGB CONC 33.9 g/dL (33.2-36.2); MEAN CORPUSCULAR VOLUME 92.4 fL (81-97); MEAN PLATELET VOLUME 7.3 fL (7.4-10.4); MONOCYTES # (AUTO) 0.81 x10^3/uL (0.2-0.8); MONOCYTES % (AUTO) 10 % (2-9); NEUTROPHILS # (AUTO) 5.73 x10^3/uL (1.8-6.8); NEUTROPHILS % (AUTO) 68 % (42-75); PLATELET COUNT 321 x10^3/uL (130-400); RED BLOOD COUNT 4.22 x10^6/uL (4.38-5.82)
[2018-04-27 22:23] LABS: ALANINE AMINOTRANSFERASE 30 U/L (12-78); ALBUMIN 3.5 g/dL (3.4-5.0); ANION GAP 15 mmol/L (5-15); CALCIUM 8.4 mg/dL (8.5-10.1); CHLORIDE 108 mmol/L (98-107); CREATININE 0.93 mg/dL (0.7-1.3)
[2018-04-27 22:27] LABS: ALKALINE PHOSPHATASE 107 U/L (45-117); BILIRUBIN,TOTAL 0.2 mg/dL (0.2-1.0); TOTAL PROTEIN 7.4 g/dL (6.4-8.2); TROPONIN I < 0.015 ng/mL (0.000-0.045)
[2018-04-28 02:36] VITALS: BP 118/80
== END 2018-04-28 02:38 | disposition home or self-care (01) ==
LOC: ED 21:48
DX: R07.89 Other chest pain (principal); F10.120 Alcohol abuse with intoxication, uncomplicated; F32.0 Major depressive disorder, single episode, mild; G30.9 Alzheimer's disease, unspecified; E78.5 Hyperlipidemia, unspecified; Z87.891 Personal history of nicotine dependence
CPT/HCPCS: 36415; 71045; 80053; 80307; 83690; 84484; 85025; 93005; 99285

== ENCOUNTER 2018-05-12 20:22 | Emergency (ER) | payer OTHER ==
[~2018-05-12] VITALS: Ht 180.3 cm; Wt 93.5 kg
[2018-05-12] MEDS ORDERED: ONDANSETRON ODT 4 MG ONE (21:29)
[2018-05-12] MEDS ORDERED: OXYcodone/APAP 5/325MG TABLET ONE (21:30)
[2018-05-12] MEDS ORDERED: OXYcodone/APAP 5/325MG TABLET PO ONE (21:30)
[2018-05-12] MEDS ORDERED: ONDANSETRON ODT 4 MG PO ONE (21:30)
[2018-05-12 22:36] VITALS: BP 151/85
== END 2018-05-12 22:43 | disposition home or self-care (01) ==
LOC: ED 22:10
DX: S06.0X1A Concussion with loss of consciousness of 30 minutes or less, initial encounter (principal); S16.1XXA Strain of muscle, fascia and tendon at neck level, initial encounter; S39.012A Strain of muscle, fascia and tendon of lower back, initial encounter; G89.29 Other chronic pain; I25.2 Old myocardial infarction; I10 Essential (primary) hypertension; E78.5 Hyperlipidemia, unspecified; F17.200 Nicotine dependence, unspecified, uncomplicated; Z88.5 Allergy status to narcotic agent; W19.XXXA Unspecified fall, initial encounter; Y93.89 Activity, other specified; Y92.009 Unspecified place in unspecified non-institutional (private) residence as the place of occurrence of the external cause; Y99.8 Other external cause status
CPT/HCPCS: 70450; 72110; 72125; 99284; Q0162

== ENCOUNTER 2018-06-17 13:36 | Emergency (ER) | payer MEDICAID, OTHER ==
[~2018-06-17] VITALS: Ht 180.3 cm; Wt 95.0 kg
[2018-06-17] MEDS ORDERED: HYDROcodone/APAP 5/325 TABLET ONE (14:29)
[2018-06-17] MEDS ORDERED: DOCUSATE 50 MG/5 ML, 10ML UDC ONE (14:29)
[2018-06-17] MEDS ORDERED: HYDROcodone/APAP 5/325 TABLET PO ONE (14:30)
[2018-06-17 16:32] VITALS: BP 143/88
[2018-06-17] MEDS ORDERED: DOCUSATE 50 MG/5 ML, 10ML UDC PO SCH (21:00)
== END 2018-06-17 16:33 | disposition home or self-care (01) ==
LOC: ED 14:49
DX: H61.23 Impacted cerumen, bilateral (principal); R42 Dizziness and giddiness; I25.10 Atherosclerotic heart disease of native coronary artery without angina pectoris; I10 Essential (primary) hypertension; F31.9 Bipolar disorder, unspecified; E78.5 Hyperlipidemia, unspecified; F17.200 Nicotine dependence, unspecified, uncomplicated; G30.9 Alzheimer's disease, unspecified; F02.80 Dementia in other diseases classified elsewhere, unspecified severity, without behavioral disturbance, psychotic disturbance, mood disturbance, and anxiety; Z95.0 Presence of cardiac pacemaker
CPT/HCPCS: 69209; 93005; 99283

== ENCOUNTER 2018-06-29 23:20 | Emergency (ER) | payer SELFPAY ==
[~2018-06-29] VITALS: Ht 177.8 cm; Wt 100.0 kg
[2018-06-29 23:58] LABS: BASOPHILS # (AUTO) 0.05 x10^3/uL (0-0.1); BASOPHILS % (AUTO) 1 % (0-1); EOSINOPHILS # (AUTO) 0.18 x10^3/uL (0-0.4); EOSINOPHILS % (AUTO) 3 % (1-7); LYMPHOCYTES # (AUTO) 1.89 x10^3/uL (1-3.4); LYMPHOCYTES % (AUTO) 29 % (22-44); MD NO; MEAN CORPUSCULAR HEMOGLOBIN 30.9 pg (27.5-34.5); MEAN CORPUSCULAR VOLUME 90.8 fL (81-97); MEAN PLATELET VOLUME 7.8 fL (7.4-10.4); MONOCYTES # (AUTO) 0.97 x10^3/uL (0.2-0.8); MONOCYTES % (AUTO) 15 % (2-9); NEUTROPHILS # (AUTO) 3.35 x10^3/uL (1.8-6.8); NEUTROPHILS % (AUTO) 52 % (42-75); PLATELET COUNT 335 x10^3/uL (130-400); RED BLOOD COUNT 3.79 x10^6/uL (4.38-5.82); RED CELL DISTRIBUTION WIDTH 15.6 % (9.4-14.8)
[2018-06-30 00:09] LABS: ALANINE AMINOTRANSFERASE 41 U/L (12-78); ALBUMIN 3.6 g/dL (3.4-5.0); ANION GAP 12 mmol/L (5-15); CHLORIDE 111 mmol/L (98-107); CREATININE 1.08 mg/dL (0.7-1.3)
[2018-06-30 00:11] LABS: ALKALINE PHOSPHATASE 154 U/L (45-117); BILIRUBIN,TOTAL 0.1 mg/dL (0.2-1.0); TOTAL PROTEIN 7.2 g/dL (6.4-8.2)
[2018-06-30 05:54] VITALS: BP 121/65
== END 2018-06-30 06:15 | disposition home or self-care (01) ==
LOC: ED 23:42
DX: F10.220 Alcohol dependence with intoxication, uncomplicated (principal); Z72.9 Problem related to lifestyle, unspecified; E11.9 Type 2 diabetes mellitus without complications
CPT/HCPCS: 36415; 70450; 80053; 80307; 85025; 93005; 99284

== ENCOUNTER 2018-07-04 13:02 | Emergency (ER) | payer MEDICARE, OTHER ==
[~2018-07-04] VITALS: Ht 180.3 cm; Wt 97.0 kg
[2018-07-04 13:09] VITALS: BP 145/82
[2018-07-04] MEDS ORDERED: OXYcodone/APAP 5/325MG TABLET ONE (13:23)
[2018-07-04] MEDS ORDERED: OXYcodone/APAP 10/325MG TABLET PO ONE (13:30)
== END 2018-07-04 14:07 | disposition home or self-care (01) ==
LOC: ED 13:28
DX: S39.012A Strain of muscle, fascia and tendon of lower back, initial encounter (principal); M51.36 Other intervertebral disc degeneration, lumbar region; E11.9 Type 2 diabetes mellitus without complications; F32.9 Major depressive disorder, single episode, unspecified; I25.2 Old myocardial infarction; G30.9 Alzheimer's disease, unspecified; F02.80 Dementia in other diseases classified elsewhere, unspecified severity, without behavioral disturbance, psychotic disturbance, mood disturbance, and anxiety; Z72.9 Problem related to lifestyle, unspecified; F17.210 Nicotine dependence, cigarettes, uncomplicated; W01.0XXA Fall on same level from slipping, tripping and stumbling without subsequent striking against object, initial encounter; Y93.89 Activity, other specified; Y92.89 Other specified places as the place of occurrence of the external cause; Y99.8 Other external cause status; M54.9 Dorsalgia, unspecified; G89.29 Other chronic pain
CPT/HCPCS: 72110; 99283

== ENCOUNTER 2018-07-11 15:57 | Emergency (ER) | payer MEDICARE, OTHER ==
[~2018-07-11] VITALS: Ht 180.3 cm; Wt 97.0 kg
[2018-07-11] MEDS ORDERED: ASPIRIN 81 MG TABLET CHEW PO ONE (16:30)
[2018-07-11 16:40] LABS: BASOPHILS # (AUTO) 0.06 x10^3/uL (0-0.1); BASOPHILS % (AUTO) 1 % (0-1); EOSINOPHILS # (AUTO) 0.12 x10^3/uL (0-0.4); EOSINOPHILS % (AUTO) 1 % (1-7); LYMPHOCYTES # (AUTO) 1.61 x10^3/uL (1-3.4); LYMPHOCYTES % (AUTO) 19 % (22-44); MD NO; MEAN CORPUSCULAR HEMOGLOBIN 30.3 pg (27.5-34.5); MEAN CORPUSCULAR HGB CONC 33.3 g/dL (33.2-36.2); MEAN PLATELET VOLUME 8.3 fL (7.4-10.4); MONOCYTES # (AUTO) 0.92 x10^3/uL (0.2-0.8); MONOCYTES % (AUTO) 11 % (2-9); NEUTROPHILS # (AUTO) 5.63 x10^3/uL (1.8-6.8); NEUTROPHILS % (AUTO) 68 % (42-75); PLATELET COUNT 407 x10^3/uL (130-400); RED BLOOD COUNT 4.67 x10^6/uL (4.38-5.82); RED CELL DISTRIBUTION WIDTH 15.7 % (9.4-14.8)
[2018-07-11] MEDS ORDERED: ASPIRIN 81 MG TABLET CHEW ONE (16:41)
[2018-07-11 16:49] LABS: ALANINE AMINOTRANSFERASE 31 U/L (12-78); ANION GAP 11 mmol/L (5-15); CALCIUM 8.4 mg/dL (8.5-10.1); CHLORIDE 106 mmol/L (98-107); CREATININE 1.16 mg/dL (0.7-1.3)
[2018-07-11 16:54] LABS: ALKALINE PHOSPHATASE 164 U/L (45-117); BILIRUBIN,TOTAL 0.4 mg/dL (0.2-1.0); TROPONIN I < 0.015 ng/mL (0.000-0.045)
[2018-07-11] MEDS ORDERED: MORPHINE SULFATE 4 MG/ML, 1ML ONE ×2 (17:00→18:15)
[2018-07-11] MEDS: MORPHINE SULFATE 4 MG/ML, 1ML IVPush PRN ×2 (17:19→18:16)
[2018-07-11] MEDS ORDERED: OMNIPAQUE 350 MG/ML, 100ML BOTTLE ONE (17:34)
[2018-07-11 18:58] VITALS: BP 122/80
[2018-07-11] MEDS ORDERED: MAALOX/HYOSCYAMINE/LIDOCAINE 45 ML BTL ONE (19:10)
[2018-07-11] MEDS ORDERED: MAALOX/HYOSCYAMINE/LIDOCAINE 45 ML BTL PO ONE (19:30)
== END 2018-07-11 19:57 | disposition home or self-care (01) ==
LOC: ED 17:11
DX: R07.9 Chest pain, unspecified (principal); Z88.6 Allergy status to analgesic agent; Z95.0 Presence of cardiac pacemaker; I10 Essential (primary) hypertension; E11.9 Type 2 diabetes mellitus without complications; I25.2 Old myocardial infarction; F31.9 Bipolar disorder, unspecified; Z79.899 Other long term (current) drug therapy
CPT/HCPCS: 36415; 71045; 71275; 80053; 80307; 84484; 85025; 93005; 96374; 96376; 99284; Q9967

== ENCOUNTER 2018-07-13 15:58 | Inpatient (IN) | payer MEDICARE ==
[~2018-07-13] VITALS: Ht 180.3 cm; Wt 93.8 kg
--- NOTE | 2018-07-13 16:00 | NUR ---
Pt brought straight back to room after witnessed syncopal event in ED lobby. Pt c/o L sided CP since last night, now rated at 10/10. Pt also c/o EVANS since yesterday. Pt taken straight back to room, Rosalia CACERES at bedside to evaluate pt. Continuous heart, oxygen and BP monitors applied, all safety measures observed.
[2018-07-13] MEDS ORDERED: SODIUM CHLORIDE FLUSH 10ML SYR IVF ONE (16:30)
--- NOTE | 2018-07-13 16:30 | NUR ---
Dr. Vanessa at bedside to evaluate pt.
[2018-07-13] MEDS ORDERED: MORPHINE SULFATE 4 MG/ML, 1ML ONE ×2 (16:34→17:40)
--- NOTE | 2018-07-13 16:40 | NUR ---
Pt medicated for pain per MAR and positioned for comfort in bed.
--- NOTE | 2018-07-13 16:46 | NUR ---
Pt states pain improved, now 8/10 after morphine. Pt appears pink, resps even and unlabored. Pt was initially very pale and diaphoretic on arrival to room. This is improved.
[2018-07-13 16:47] LABS: BASOPHILS # (AUTO) 0.07 x10^3/uL (0-0.1); BASOPHILS % (AUTO) 1 % (0-1); EOSINOPHILS # (AUTO) 0.05 x10^3/uL (0-0.4); EOSINOPHILS % (AUTO) 1 % (1-7); LYMPHOCYTES # (AUTO) 1.76 x10^3/uL (1-3.4); LYMPHOCYTES % (AUTO) 27 % (22-44); MD NO; MEAN CORPUSCULAR HEMOGLOBIN 30.5 pg (27.5-34.5); MEAN CORPUSCULAR HGB CONC 33.5 g/dL (33.2-36.2); MEAN CORPUSCULAR VOLUME 91.2 fL (81-97); MEAN PLATELET VOLUME 8.4 fL (7.4-10.4); MONOCYTES # (AUTO) 0.85 x10^3/uL (0.2-0.8); MONOCYTES % (AUTO) 13 % (2-9); NEUTROPHILS # (AUTO) 3.85 x10^3/uL (1.8-6.8); NEUTROPHILS % (AUTO) 59 % (42-75); PLATELET COUNT 398 x10^3/uL (130-400); RED BLOOD COUNT 4.11 x10^6/uL (4.38-5.82); RED CELL DISTRIBUTION WIDTH 15.3 % (9.4-14.8)
[2018-07-13] MEDS ORDERED: MAALOX/HYOSCYAMINE/LIDOCAINE 45 ML BTL ONE (16:49)
--- NOTE | 2018-07-13 16:55 | NUR ---
PATIENT HAS BEEN ASSESSED AND CHECKED IN BY LESTER WHITAKER. AT THIS TIME PATIENT HAS BEEN MEDICATED WITH MORPHNE AND GI COCKTAIL PER SEP. HE REPORTS THAT THE CHEST PAIN HAS EASED OFF AT THIS TIME, BUT HE CONTINUES TO REPORT TINGLING IN R HAND AND EYES/BILAT HANDS ARE CLAMMY. vss ON ROOM AIR, nsr ON MONITOR. POC DISCUSSED WITH MD NORMAN, AWAITING LABS
[2018-07-13 16:56] LABS: ALBUMIN 3.7 g/dL (3.4-5.0); ANION GAP 11 mmol/L (5-15); CALCIUM 8.6 mg/dL (8.5-10.1); CHLORIDE 108 mmol/L (98-107)
--- NOTE | 2018-07-13 16:59 | NUR ---
CHEST PAIN HAS RETURNED, 9/10, SHARP STABBING PAIN THROUGHOUT ANTERIOR CHEST.
[2018-07-13] MEDS ORDERED: MORPHINE SULFATE 4 MG/ML, 1ML IVPush ONE ×2 (17:00→18:00)
[2018-07-13] MEDS ORDERED: MAALOX/HYOSCYAMINE/LIDOCAINE 45 ML BTL PO ONE (17:00)
[2018-07-13 17:01] LABS: TROPONIN I < 0.015 ng/mL (0.000-0.045)
[2018-07-13] MEDS ORDERED: LORazepam 2 MG/ML, 1ML ONE (17:41)
[2018-07-13] MEDS ORDERED: LORazepam 2 MG/ML, 1ML IVPush ONE (18:00)
--- NOTE | 2018-07-13 18:54 | NUR ---
Report from Ignacio BATISTA.
[2018-07-13] MEDS ORDERED: OMNIPAQUE 350 MG/ML, 100ML BOTTLE ONE (19:00)
[2018-07-13] MEDS ORDERED: GABAPENTIN 300 MG CAPSULE PO PRN (19:00)
[2018-07-13] MEDS ORDERED: ONDANSETRON 4 MG TABLET PO PRN (19:00)
[2018-07-13] MEDS ORDERED: LIDODERM 5% PATCH TD PRN (19:00)
[2018-07-13] MEDS ORDERED: DOCUSATE 100 MG CAPSULE PO PRN (19:00)
--- NOTE | 2018-07-13 19:23 | NUR ---
Return from CT scan.
--- NOTE | 2018-07-13 19:32 | NUR ---
Pt resting in bed, appearing comfortable. pt breathing E/U, no s/sx of discomfort. Pt calm and cooperative, conversing well. Pt states his CP has returned and is 9/10 at this time. no pain medication orders noted. Will notify [facility] for pain med request. Pt denies any other complaints or needs. Pt VSS. awaiting room assignment. will continue to monitor. call light in reach.
--- NOTE | 2018-07-13 19:42 | NUR ---
Hospitalist notified of pt request for morphine for pain. no new order for morphine. Per MD pt to try other meds ordered for pain. Pt notified of no new order for morphine. Pt asked for dilaudid. Pt informed MD wants to try other methods of pain control. Pt agrees to try a lidocaine patch at this time.
[2018-07-13 19:52] LABS: TROPONIN I < 0.015 ng/mL (0.000-0.045)
--- NOTE | 2018-07-13 20:25 | NUR ---
Attempted to call report, on hold for some time. will attempt again.
--- NOTE | 2018-07-13 20:51 | NUR ---
Report to keily BATISTA. pt to go to room.
[2018-07-13] MEDS ORDERED: TEMPLATE NON-FORMULARY MED. (Baclofen** 20 MG) PO SCH (21:00)
[2018-07-13] MEDS ORDERED: LIDODERM 5% PATCH TD ONE (21:51)
[2018-07-13] MEDS: NITROGLYCERIN 0.4 MG BOTTLE (25 TABS) SL PRN ×3 (22:07→23:05)
[2018-07-13 22:10] VITALS: BP 129/83
[2018-07-13 22:35] LABS: TROPONIN I < 0.015 ng/mL (0.000-0.045)
[2018-07-13 22:50] VITALS: BP 115/73
[2018-07-13] MEDS: NICOTINE 21 MG/24 HR PATCH.TD24 TD SCH (22:53)
[2018-07-13] MEDS: ACETAMINOPHEN 325 MG TABLET PO PRN ×2 (22:54→23:01)
[2018-07-13] MEDS: RISPERIDONE 1 MG TAB.RAPDIS PO SCH (22:54)
[2018-07-13] MEDS: SERTRALINE 100MG TABLET PO SCH (22:55)
[2018-07-13] MEDS: METOPROLOL TARTRATE 25 MG TABLET PO SCH (22:55)
[2018-07-13] MEDS: CARBAMAZEPINE 200 MG TABLET PO SCH (22:57)
[2018-07-13 23:05] VITALS: BP 105/66
[2018-07-13 23:09] VITALS: BP 134/89
[2018-07-14 00:53] VITALS: BP 96/59
[2018-07-14] MEDS ORDERED: OXYcodone/APAP 10/325MG TABLET ONE (01:24)
[2018-07-14] MEDS ORDERED: OXYcodone/APAP 10/325MG TABLET PO ONE (01:30)
[2018-07-14 05:27] LABS: CHOL/HDL RATIO 4.6; LDL/HDL RATIO 2.4 (0.5-3.0)
[2018-07-14 07:40] VITALS: BP 117/78
[2018-07-14] MEDS ORDERED: LISINOPRIL 10 MG TABLET PO SCH (09:00)
[2018-07-14] MEDS: LOVASTATIN 20 MG TABLET PO SCH (09:19)
[2018-07-14] MEDS: OMEPRAZOLE 20 MG CAPSULE.DR PO SCH (09:19)
[2018-07-14] MEDS: MORPHINE SULFATE 4 MG/ML, 1ML IVPush PRN ×4 (09:19→21:45)
[2018-07-14] MEDS: CARBAMAZEPINE 200 MG TABLET PO SCH ×2 (09:19→19:53)
[2018-07-14] MEDS: METOPROLOL TARTRATE 25 MG TABLET PO SCH ×2 (09:20→19:53)
[2018-07-14] MEDS: ASPIRIN 81 MG TABLET CHEW PO/NG SCH (09:21)
--- NOTE | 2018-07-14 10:48 | NUR ---
REC: soft/thins, swallow precaution sign at bedside Addendum: 07/14/18 at 1544 by Pebbles RUGGIERO Amended: Links added.
[2018-07-14] MEDS ORDERED: MAALOX/HYOSCYAMINE/LIDOCAINE 45 ML BTL PO ONE (13:00)
[2018-07-14 14:00] VITALS: BP 101/68
[2018-07-14] MEDS: NICOTINE 21 MG/24 HR PATCH.TD24 TD SCH (18:17)
[2018-07-14 19:48] VITALS: BP 100/66
[2018-07-14] MEDS: RISPERIDONE 1 MG TAB.RAPDIS PO SCH (19:52)
[2018-07-14] MEDS: SERTRALINE 100MG TABLET PO SCH (19:53)
[2018-07-14] MEDS ORDERED: BACLOFEN 10 MG TABLET PO SCH (21:00)
[2018-07-15 00:33] VITALS: BP 105/70
[2018-07-15] MEDS: MORPHINE SULFATE 4 MG/ML, 1ML IVPush PRN ×3 (02:17→11:45)
[2018-07-15 05:21] LABS: BASOPHILS # (AUTO) 0.06 x10^3/uL (0-0.1); BASOPHILS % (AUTO) 1 % (0-1); EOSINOPHILS # (AUTO) 0.13 x10^3/uL (0-0.4); EOSINOPHILS % (AUTO) 2 % (1-7); LYMPHOCYTES % (AUTO) 27 % (22-44); MD NO; MEAN CORPUSCULAR HEMOGLOBIN 29.9 pg (27.5-34.5); MEAN CORPUSCULAR HGB CONC 32.4 g/dL (33.2-36.2); MEAN CORPUSCULAR VOLUME 92.3 fL (81-97); MEAN PLATELET VOLUME 8.4 fL (7.4-10.4); MONOCYTES # (AUTO) 0.72 x10^3/uL (0.2-0.8); MONOCYTES % (AUTO) 11 % (2-9); NEUTROPHILS # (AUTO) 3.94 x10^3/uL (1.8-6.8); NEUTROPHILS % (AUTO) 59 % (42-75); PLATELET COUNT 334 x10^3/uL (130-400); RED BLOOD COUNT 3.88 x10^6/uL (4.38-5.82); RED CELL DISTRIBUTION WIDTH 15.2 % (9.4-14.8)
[2018-07-15 05:26] LABS: ALANINE AMINOTRANSFERASE 21 U/L (12-78); ALBUMIN 3.2 g/dL (3.4-5.0); ANION GAP 4 mmol/L (5-15); CALCIUM 8.2 mg/dL (8.5-10.1); CHLORIDE 110 mmol/L (98-107)
[2018-07-15 05:29] LABS: ALKALINE PHOSPHATASE 113 U/L (45-117); BILIRUBIN,TOTAL 0.2 mg/dL (0.2-1.0); TOTAL PROTEIN 6.4 g/dL (6.4-8.2)
[2018-07-15 07:15] VITALS: BP 122/81
[2018-07-15] MEDS: OMEPRAZOLE 20 MG CAPSULE.DR PO SCH (09:13)
[2018-07-15] MEDS: CARBAMAZEPINE 200 MG TABLET PO SCH (09:13)
[2018-07-15] MEDS: METOPROLOL TARTRATE 25 MG TABLET PO SCH (09:14)
[2018-07-15] MEDS: LOVASTATIN 20 MG TABLET PO SCH (09:14)
[2018-07-15] MEDS: ASPIRIN 81 MG TABLET CHEW PO/NG SCH (09:14)
[2018-07-15 13:43] VITALS: BP 100/64
[2018-07-15] MEDS ORDERED: GABA300C10 PO (16:00)
[2018-07-15] MEDS ORDERED: CLOP75TA52 PO (16:02)
[2018-07-15] MEDS ORDERED: TRAM50TA2 PO (16:26)
== END 2018-07-15 19:56 | disposition home health service (06) | DRG 65 ==
LOC: ED 17:44 → EDIP 17:45 → 5SO 20:59
PROVIDERS: ADMIT Hospitalist; ATTEND Hospitalist
DX: I63.9 Cerebral infarction, unspecified (principal); F33.1 Major depressive disorder, recurrent, moderate; G90.8 Other disorders of autonomic nervous system; R07.9 Chest pain, unspecified; I44.30 Unspecified atrioventricular block; I25.10 Atherosclerotic heart disease of native coronary artery without angina pectoris; I11.9 Hypertensive heart disease without heart failure; J44.9 Chronic obstructive pulmonary disease, unspecified; G30.9 Alzheimer's disease, unspecified; F02.80 Dementia in other diseases classified elsewhere, unspecified severity, without behavioral disturbance, psychotic disturbance, mood disturbance, and anxiety; E78.5 Hyperlipidemia, unspecified; E11.43 Type 2 diabetes mellitus with diabetic autonomic (poly)neuropathy; Z88.8 Allergy status to other drugs, medicaments and biological substances; I25.2 Old myocardial infarction; Z83.3 Family history of diabetes mellitus; Z87.891 Personal history of nicotine dependence
CPT/HCPCS: 36415; 70450; 70496; 70498; 71045; 80048; 80053; 80061; 82040; 84484; 85025; 93005; 93306; 96374; 96375; G0378; Q9967; 92523-GN; J2060

== ENCOUNTER 2018-07-19 18:40 | Emergency (ER) | payer MEDICARE, OTHER ==
[~2018-07-19] VITALS: Ht 180.3 cm; Wt 97.7 kg
[~2018-07-19 18:40] MED LIST changes: +CLOP75TA52 PO; +GABA300C10 PO; +TRAM50TA2 PO
--- NOTE | 2018-07-19 19:04 | NUR ---
Pt presents for stabbing substernal CP starting gradually at 1700. Constant. Pain worse with inspiration, movement. Pt cardioverted yesterday at [facility] for AFIB c RVR. Pt ST 101 at this time. vss.
[2018-07-19 19:06] LABS: BASOPHILS # (AUTO) 0.04 x10^3/uL (0-0.1); BASOPHILS % (AUTO) 0 % (0-1); EOSINOPHILS # (AUTO) 0.13 x10^3/uL (0-0.4); EOSINOPHILS % (AUTO) 1 % (1-7); LYMPHOCYTES # (AUTO) 2.34 x10^3/uL (1-3.4); LYMPHOCYTES % (AUTO) 23 % (22-44); MD NO; MEAN CORPUSCULAR HGB CONC 32.9 g/dL (33.2-36.2); MEAN CORPUSCULAR VOLUME 91.1 fL (81-97); MEAN PLATELET VOLUME 7.9 fL (7.4-10.4); MONOCYTES # (AUTO) 0.84 x10^3/uL (0.2-0.8); MONOCYTES % (AUTO) 8 % (2-9); NEUTROPHILS # (AUTO) 6.68 x10^3/uL (1.8-6.8); NEUTROPHILS % (AUTO) 67 % (42-75); PLATELET COUNT 421 x10^3/uL (130-400); RED BLOOD COUNT 4.34 x10^6/uL (4.38-5.82); RED CELL DISTRIBUTION WIDTH 15.4 % (9.4-14.8)
[2018-07-19 19:12] LABS: ALANINE AMINOTRANSFERASE 24 U/L (12-78); ALBUMIN 3.9 g/dL (3.4-5.0); ANION GAP 11 mmol/L (5-15); CALCIUM 8.4 mg/dL (8.5-10.1); CHLORIDE 110 mmol/L (98-107); CREATININE 1.17 mg/dL (0.7-1.3)
[2018-07-19 19:16] LABS: ALKALINE PHOSPHATASE 139 U/L (45-117); BILIRUBIN,TOTAL 0.3 mg/dL (0.2-1.0); TOTAL PROTEIN 7.7 g/dL (6.4-8.2); TROPONIN I < 0.015 ng/mL (0.000-0.045)
[2018-07-19] MEDS ORDERED: ACETAMINOPHEN 325 MG TABLET ONE (20:19)
[2018-07-19] MEDS ORDERED: ACETAMINOPHEN 325 MG TABLET PO ONE (20:30)
[2018-07-19 20:32] VITALS: BP 113/72
== END 2018-07-19 20:46 | disposition home or self-care (01) ==
LOC: ED 19:41
DX: R07.89 Other chest pain (principal); I10 Essential (primary) hypertension; F32.9 Major depressive disorder, single episode, unspecified; E11.9 Type 2 diabetes mellitus without complications; I25.10 Atherosclerotic heart disease of native coronary artery without angina pectoris; Z72.9 Problem related to lifestyle, unspecified
CPT/HCPCS: 36415; 71045; 80053; 84484; 85025; 93005; 99284

== ENCOUNTER 2018-07-20 13:33 | Emergency (ER) | payer SELFPAY | END 2018-07-20 14:14 | disposition left against medical advice (07) | LOC: ED 14:08 | DX: M54.9 Dorsalgia, unspecified (principal); Z53.21 Procedure and treatment not carried out due to patient leaving prior to being seen by health care provider ==

== ENCOUNTER 2018-07-21 22:48 | Emergency (ER) | payer SELFPAY ==
[~2018-07-21] VITALS: Ht 180.3 cm; Wt 94.7 kg
[2018-07-21] MEDS ORDERED: ASPIRIN 81 MG TABLET CHEW PO ONE (23:00)
[2018-07-21] MEDS ORDERED: ASPIRIN 81 MG TABLET CHEW ONE (23:11)
[2018-07-21] MEDS ORDERED: IBUPROFEN 200 MG TABLET ONE (23:15)
[2018-07-21 23:22] LABS: BASOPHILS # (AUTO) 0.01 x10^3/uL (0-0.1); BASOPHILS % (AUTO) 0 % (0-1); EOSINOPHILS # (AUTO) 0.05 x10^3/uL (0-0.4); EOSINOPHILS % (AUTO) 0 % (1-7); LYMPHOCYTES # (AUTO) 1.95 x10^3/uL (1-3.4); LYMPHOCYTES % (AUTO) 16 % (22-44); MD NO; MEAN CORPUSCULAR HEMOGLOBIN 29.4 pg (27.5-34.5); MEAN CORPUSCULAR HGB CONC 32.6 g/dL (33.2-36.2); MEAN CORPUSCULAR VOLUME 90.4 fL (81-97); MEAN PLATELET VOLUME 8.3 fL (7.4-10.4); MONOCYTES # (AUTO) 0.78 x10^3/uL (0.2-0.8); MONOCYTES % (AUTO) 7 % (2-9); NEUTROPHILS # (AUTO) 9.28 x10^3/uL (1.8-6.8); NEUTROPHILS % (AUTO) 77 % (42-75); PLATELET COUNT 410 x10^3/uL (130-400); RED BLOOD COUNT 4.21 x10^6/uL (4.38-5.82)
--- NOTE | 2018-07-21 23:28 | NUR ---
PT HERE FOR SUDDEN ONSET CHEST PAIN APPROX 1 HOUR AGO. PAIN SHARP. PT TOOK 6 81MG ASA AND 2 NITRO WITH NO RELIEF. VSS. PT MEDICATED WITH IBUPROFEN. CALL LIGHT IN REACH
[2018-07-21 23:33] LABS: ALBUMIN 3.6 g/dL (3.4-5.0); ANION GAP 10 mmol/L (5-15); CALCIUM 8.2 mg/dL (8.5-10.1); CHLORIDE 111 mmol/L (98-107); CREATININE 1.32 mg/dL (0.7-1.3)
[2018-07-21 23:36] LABS: TROPONIN I < 0.015 ng/mL (0.000-0.045)
[2018-07-22] VITALS: BP 118/79
[2018-07-22] MEDS ORDERED: IBUPROFEN 200 MG TABLET PO ONE
--- NOTE | 2018-07-22 00:04 | NUR ---
pt still complaining of pain. vss. notified.
--- NOTE | 2018-07-22 00:29 | NUR ---
Patient given discharge instructions and they have confirmed that they understand the instructions. Patient ambulatory with steady gait.
== END 2018-07-22 00:31 | disposition home or self-care (01) ==
LOC: ED 23:13
DX: R07.2 Precordial pain (principal); F17.200 Nicotine dependence, unspecified, uncomplicated; I25.10 Atherosclerotic heart disease of native coronary artery without angina pectoris; I25.2 Old myocardial infarction; E11.9 Type 2 diabetes mellitus without complications; I10 Essential (primary) hypertension; E78.5 Hyperlipidemia, unspecified
CPT/HCPCS: 36415; 71045; 80048; 82040; 84484; 85025; 93005; 99284

== ENCOUNTER 2018-08-17 11:55 | Emergency (ER) | payer MEDICARE, OTHER ==
[~2018-08-17] VITALS: Ht 172.7 cm; Wt 95.6 kg
[2018-08-17] MEDS ORDERED: SODIUM CHLORIDE FLUSH 10ML SYR IVF ONE (12:30)
[2018-08-17] MEDS: MORPHINE SULFATE 4 MG/ML, 1ML IVPush PRN ×2 (12:30→13:20)
[2018-08-17] MEDS ORDERED: ASPIRIN 81 MG TABLET CHEW PO ONE (12:30)
[2018-08-17] MEDS ORDERED: ASPIRIN 81 MG TABLET CHEW ONE (12:43)
[2018-08-17] MEDS ORDERED: MORPHINE SULFATE 4 MG/ML, 1ML ONE (12:43)
[2018-08-17 12:59] LABS: BASOPHILS % (AUTO) 2 % (0-1); EOSINOPHILS # (AUTO) 0.23 x10^3/uL (0-0.4); EOSINOPHILS % (AUTO) 3 % (1-7); LYMPHOCYTES # (AUTO) 1.59 x10^3/uL (1-3.4); LYMPHOCYTES % (AUTO) 23 % (22-44); MD NO; MEAN CORPUSCULAR HEMOGLOBIN 29.5 pg (27.5-34.5); MEAN CORPUSCULAR HGB CONC 33.2 g/dL (33.2-36.2); MEAN CORPUSCULAR VOLUME 88.8 fL (81-97); MEAN PLATELET VOLUME 8.3 fL (7.4-10.4); MONOCYTES # (AUTO) 0.62 x10^3/uL (0.2-0.8); MONOCYTES % (AUTO) 9 % (2-9); NEUTROPHILS # (AUTO) 4.49 x10^3/uL (1.8-6.8); NEUTROPHILS % (AUTO) 64 % (42-75); PLATELET COUNT 335 x10^3/uL (130-400); RED BLOOD COUNT 4.06 x10^6/uL (4.38-5.82)
--- NOTE | 2018-08-17 12:59 | NUR ---
UNABLE TO GET IV ACCESS AT THIS TIME
[2018-08-17 13:09] LABS: ALBUMIN 3.6 g/dL (3.4-5.0); ANION GAP 7 mmol/L (5-15); CALCIUM 8.9 mg/dL (8.5-10.1); CHLORIDE 112 mmol/L (98-107); CREATININE 1.15 mg/dL (0.7-1.3)
--- NOTE | 2018-08-17 13:09 | NUR ---
[employer] CONTACTED FOR PACEMAKER INTEROGATION, LESTER ANGEL AT BEDSIDE ATTEMPTING TO OBTAIN IV ACCESS
[2018-08-17 13:13] LABS: TROPONIN I < 0.015 ng/mL (0.000-0.045)
[2018-08-17 14:29] VITALS: BP 96/63
--- NOTE | 2018-08-17 14:30 | NUR ---
FLOAT RN, COVERING MEAL BREAK. PT DISCHARGED HOME. WALKS WITH STEADY GAIT TO D/C DESK. PT DENIES PAIN OR ANY OTHER SX.
== END 2018-08-17 14:31 | disposition home or self-care (01) ==
LOC: ED 12:25
DX: R07.89 Other chest pain (principal); R55 Syncope and collapse; I25.2 Old myocardial infarction; E78.5 Hyperlipidemia, unspecified; I10 Essential (primary) hypertension; G30.9 Alzheimer's disease, unspecified
CPT/HCPCS: 36415; 71046; 80048; 82040; 83880; 84484; 85025; 93005; 96374; 96376

== ENCOUNTER 2018-09-03 16:33 | Emergency (ER) | payer MEDICARE ==
[~2018-09-03] VITALS: Ht 180.3 cm; Wt 97.2 kg
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
--- NOTE | 2018-09-03 16:49 | NUR ---
PT STATES "I TOOK 3 NITRO BEFORE THE AMBULANCE GOT TO ME."
--- NOTE | 2018-09-03 17:54 | NUR ---
PIV ESTABLISHED. PT TOLERATED WITH NO COMPLICATIONS.
[2018-09-03] MEDS ORDERED: MORPHINE SULFATE 4 MG/ML, 1ML ONE (17:55)
[2018-09-03] MEDS ORDERED: MORPHINE SULFATE 4 MG/ML, 1ML IVPush PRN (18:00)
--- NOTE | 2018-09-03 18:02 | NUR ---
PT RESTING ON GURNEY. PT STATES "I FEEL MUCH BETTER AFTER THE MEDICATIONS." NO ACUTE DISTRESS NOTED. NO OTHER NEEDS REQUESTED AT THIS TIME. PT CONVERSING WITH NURSE AND SMILING. CALL LIGHT WITHIN REACH
[2018-09-03 18:12] LABS: BASOPHILS # (AUTO) 0.06 x10^3/uL (0-0.1); BASOPHILS % (AUTO) 1 % (0-1); EOSINOPHILS # (AUTO) 0.15 x10^3/uL (0-0.4); EOSINOPHILS % (AUTO) 2 % (1-7); LYMPHOCYTES # (AUTO) 1.84 x10^3/uL (1-3.4); LYMPHOCYTES % (AUTO) 24 % (22-44); MD NO; MEAN CORPUSCULAR HEMOGLOBIN 28.5 pg (27.5-34.5); MEAN CORPUSCULAR HGB CONC 33.1 g/dL (33.2-36.2); MEAN CORPUSCULAR VOLUME 86.1 fL (81-97); MEAN PLATELET VOLUME 8.1 fL (7.4-10.4); MONOCYTES # (AUTO) 0.81 x10^3/uL (0.2-0.8); MONOCYTES % (AUTO) 11 % (2-9); NEUTROPHILS # (AUTO) 4.91 x10^3/uL (1.8-6.8); NEUTROPHILS % (AUTO) 63 % (42-75); PLATELET COUNT 334 x10^3/uL (130-400); RED BLOOD COUNT 4.02 x10^6/uL (4.38-5.82)
[2018-09-03 18:22] LABS: ALBUMIN 3.6 g/dL (3.4-5.0); ANION GAP 8 mmol/L (5-15); CALCIUM 8.4 mg/dL (8.5-10.1); CHLORIDE 112 mmol/L (98-107)
[2018-09-03 18:27] LABS: CREATININE 0.85 mg/dL (0.7-1.3); TROPONIN I < 0.015 ng/mL (0.000-0.045)
--- NOTE | 2018-09-03 19:00 | NUR ---
PT RESTING ON GURNEY. NO ACUTE DISTRESS NOTED. BEDSIDE REPORT TO LESTER LONG. NO C/O PAIN AT THIS TIME.
--- NOTE | 2018-09-03 20:14 | NUR ---
if second trop neg then dc home per dr fernandez
[2018-09-03 20:26] LABS: TROPONIN I < 0.015 ng/mL (0.000-0.045)
[2018-09-03] MEDS ORDERED: HYDROcodone/APAP 10/325 MG TABLET PO ONE (20:30)
--- NOTE | 2018-09-03 20:33 | NUR ---
2ND TROP IS STILL PENDING
--- NOTE | 2018-09-03 21:35 | NUR ---
GIVEN DC INSTRUCTION WITH TAXI EVELYN FOR HOME PT UP AMBUALTED TO CHECK OUT VSS STBALE
[2018-09-03 21:36] VITALS: BP 131/74
== END 2018-09-03 21:38 | disposition home or self-care (01) ==
LOC: ED 18:49
DX: R07.89 Other chest pain (principal); I25.10 Atherosclerotic heart disease of native coronary artery without angina pectoris; I10 Essential (primary) hypertension; E11.9 Type 2 diabetes mellitus without complications; E78.5 Hyperlipidemia, unspecified; M54.9 Dorsalgia, unspecified; G89.29 Other chronic pain; I25.2 Old myocardial infarction; Z72.9 Problem related to lifestyle, unspecified; F31.9 Bipolar disorder, unspecified; G30.9 Alzheimer's disease, unspecified; F02.80 Dementia in other diseases classified elsewhere, unspecified severity, without behavioral disturbance, psychotic disturbance, mood disturbance, and anxiety
CPT/HCPCS: 36415; 71045; 80048; 82040; 84484; 85025; 93005; 96374

== ENCOUNTER 2018-09-11 19:16 | Emergency (ER) | payer MEDICARE ==
[~2018-09-11] VITALS: Ht 188 cm; Wt 97.0 kg
--- NOTE | 2018-09-11 19:19 | NUR ---
JONA. REPORT RECEIVED FROM EMS. PT C/O CP STARTED 6:50 TONIGHT. PT HAD MN LAST MONDAY. PT HAS HX OF HLD/HTN/MN. PT'S AOX4. RESPS EVEN AND UNLABORED. NEURO INTACT. NSR ON COMMAND AND CONTROL SYSTEMS INTEGRATOR RATE 90'S AT THIS TIME. EKG DONE AT BEDSIDE BY EDT. ALL MONITORS IN PLACE. CALL LIGHT WITHIN REACH.
[2018-09-11] MEDS ORDERED: MORPHINE SULFATE 4 MG/ML, 1ML ONE (19:59)
[2018-09-11] MEDS ORDERED: morphine SULFATE 10 MG/ML, 1ML IVPush ONE (20:00)
--- NOTE | 2018-09-11 20:09 | NUR ---
PT MEDICATED PER EMAR. PT TOLERATED WELL. PT'S AOX4. RESPS EVEN AND UNLABORED.
[2018-09-11 20:37] LABS: ALANINE AMINOTRANSFERASE 29 U/L (12-78); ALBUMIN 3.6 g/dL (3.4-5.0); ANION GAP 8 mmol/L (5-15); CALCIUM 8.2 mg/dL (8.5-10.1); CHLORIDE 111 mmol/L (98-107)
[2018-09-11 20:40] LABS: INTERNATIONAL NORMALIZED RATIO 1.02 (0.93-1.1); PROTHROMBIN TIME 10.8 Seconds (9.6-11.5)
[2018-09-11 20:41] LABS: ALKALINE PHOSPHATASE 136 U/L (45-117); BILIRUBIN,TOTAL 0.2 mg/dL (0.2-1.0); TOTAL PROTEIN 7.4 g/dL (6.4-8.2); TROPONIN I < 0.015 ng/mL (0.000-0.045)
[2018-09-11 20:50] LABS: MEAN CORPUSCULAR HEMOGLOBIN 27.8 pg (27.5-34.5); MEAN CORPUSCULAR HGB CONC 32.3 g/dL (33.2-36.2); RED BLOOD COUNT 4.12 x10^6/uL (4.38-5.82); RED CELL DISTRIBUTION WIDTH 17.3 % (9.4-14.8)
[2018-09-11 20:51] LABS: BASOPHILS # (AUTO) 0.05 x10^3/uL (0-0.1); BASOPHILS % (AUTO) 1 % (0-1); EOSINOPHILS # (AUTO) 0.06 x10^3/uL (0-0.4); EOSINOPHILS % (AUTO) 1 % (1-7); LYMPHOCYTES # (AUTO) 1.75 x10^3/uL (1-3.4); LYMPHOCYTES % (AUTO) 23 % (22-44); MD NO; MEAN PLATELET VOLUME 8.4 fL (7.4-10.4); MONOCYTES # (AUTO) 0.74 x10^3/uL (0.2-0.8); MONOCYTES % (AUTO) 10 % (2-9); NEUTROPHILS # (AUTO) 4.89 x10^3/uL (1.8-6.8); NEUTROPHILS % (AUTO) 65 % (42-75); PLATELET COUNT 413 x10^3/uL (130-400)
--- NOTE | 2018-09-11 20:51 | NUR ---
PT'S PAIN LEVEL REDUCED TO 8/10 AT THIS TIME. PT REQUESTING PAIN MED. EDMD NOTIFIED.
--- NOTE | 2018-09-11 21:09 | NUR ---
Mai nuñez in [facility] - 09/11/18 at 2133 by ARNULFO SHAKEEL DONE BY MARY MOREL
[2018-09-11 21:52] VITALS: BP 112/64
--- NOTE | 2018-09-11 21:55 | NUR ---
PT GIVEN DC INSTRUCTIONS. PT'S AOX4. RESPS EVEN AND UNLABORED. CP RESOLVED AT DC. PT AMB TO DC WITH STEADY GAIT. TAXI VOUCHER PROVIDED AT DC. NO ACUTE DISTRESS AT DC.
== END 2018-09-11 21:56 | disposition home or self-care (01) ==
LOC: ED 21:20
DX: R07.9 Chest pain, unspecified (principal); J44.9 Chronic obstructive pulmonary disease, unspecified; I25.2 Old myocardial infarction; E11.9 Type 2 diabetes mellitus without complications; I25.10 Atherosclerotic heart disease of native coronary artery without angina pectoris; F31.9 Bipolar disorder, unspecified; Z95.0 Presence of cardiac pacemaker
CPT/HCPCS: 36415; 71045; 80053; 84484; 85025; 85610; 85730; 93005; 96374; 99284; J2270

== ENCOUNTER 2018-11-10 18:51 | Emergency (ER) | payer SELFPAY ==
[~2018-11-10] VITALS: Ht 177.8 cm; Wt 98.0 kg
[~2018-11-10 18:51] MED LIST changes: +SENN-177 PO; -SENN1TAB8 PO
[2018-11-10] MEDS ORDERED: ONDANSETRON 2MG/ML, 2ML ONE (18:54)
[2018-11-10] MEDS ORDERED: MORPHINE SULFATE 4 MG/ML, 1ML ONE (18:54)
[2018-11-10] MEDS ORDERED: SODIUM CHLORIDE FLUSH 10ML SYR IVF ONE (19:00)
--- NOTE | 2018-11-10 19:02 | NUR ---
pt at [facility] for depression after the loss of his 1 month ago.
[2018-11-10] MEDS ORDERED: MORPHINE SULFATE 4 MG/ML, 1ML IVPush ONE (19:30)
[2018-11-10] MEDS ORDERED: ONDANSETRON 2MG/ML, 2ML IVPush ONE (19:30)
[2018-11-10] MEDS ORDERED: ACET-1600 PO (20:07)
[2018-11-10] MEDS ORDERED: IBUP200T49 PO (20:07)
[2018-11-10] MEDS ORDERED: CHLO100T6 PO (20:07)
[2018-11-10] MEDS ORDERED: HYDR50TA13 PO (20:07)
[2018-11-10] MEDS ORDERED: TRAZ-137 PO (20:07)
[2018-11-10] MEDS ORDERED: ARIP10TA33 PO (20:07)
[2018-11-10] MEDS ORDERED: HYDR-3240 PO (20:07)
[2018-11-10] MEDS ORDERED: CLON0.1T22 PO (20:07)
[2018-11-10] MEDS ORDERED: MIRT15TA4 PO (20:07)
[2018-11-10 20:16] LABS: INTERNATIONAL NORMALIZED RATIO 0.93 (0.93-1.1); PROTHROMBIN TIME 9.8 Seconds (9.6-11.5)
[2018-11-10 20:18] LABS: ALANINE AMINOTRANSFERASE 32 U/L (12-78); ALBUMIN 3.5 g/dL (3.4-5.0); ANION GAP 6 mmol/L (5-15); CALCIUM 8.4 mg/dL (8.5-10.1); CHLORIDE 109 mmol/L (98-107); CREATININE 1.13 mg/dL (0.7-1.3)
[2018-11-10 20:22] LABS: ALKALINE PHOSPHATASE 132 U/L (45-117); TOTAL PROTEIN 6.9 g/dL (6.4-8.2); TROPONIN I < 0.015 ng/mL (0.000-0.045)
[2018-11-10 20:23] LABS: BILIRUBIN,TOTAL < 0.1 mg/dL (0.2-1.0)
[2018-11-10 20:30] LABS: BASOPHILS # (AUTO) 0.04 x10^3/uL (0-0.1); BASOPHILS % (AUTO) 1 % (0-1); EOSINOPHILS % (AUTO) 4 % (1-7); LYMPHOCYTES # (AUTO) 1.51 x10^3/uL (1-3.4); LYMPHOCYTES % (AUTO) 28 % (22-44); MD NO; MEAN CORPUSCULAR HEMOGLOBIN 28.9 pg (27.5-34.5); MEAN CORPUSCULAR HGB CONC 33.3 g/dL (33.2-36.2); MEAN CORPUSCULAR VOLUME 86.8 fL (81-97); MEAN PLATELET VOLUME 8.5 fL (7.4-10.4); MONOCYTES # (AUTO) 0.75 x10^3/uL (0.2-0.8); MONOCYTES % (AUTO) 14 % (2-9); NEUTROPHILS % (AUTO) 54 % (42-75); PLATELET COUNT 298 x10^3/uL (130-400); RED BLOOD COUNT 4.17 x10^6/uL (4.38-5.82); RED CELL DISTRIBUTION WIDTH 22.3 % (9.4-14.8)
[2018-11-10] MEDS ORDERED: ACETAMINOPHEN 500 MG TABLET PO ONE (20:30)
[2018-11-10] MEDS ORDERED: ACETAMINOPHEN 500 MG TABLET ONE (21:00)
[2018-11-10 21:25] VITALS: BP 123/68
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
== END 2018-11-10 21:51 | disposition home or self-care (01) ==
LOC: ED 20:35
DX: R07.2 Precordial pain (principal); J44.9 Chronic obstructive pulmonary disease, unspecified; I25.10 Atherosclerotic heart disease of native coronary artery without angina pectoris; I25.2 Old myocardial infarction; I10 Essential (primary) hypertension; E78.5 Hyperlipidemia, unspecified; E11.9 Type 2 diabetes mellitus without complications; G30.9 Alzheimer's disease, unspecified; Z88.1 Allergy status to other antibiotic agents
CPT/HCPCS: 36415; 71045; 80053; 84484; 85025; 85610; 85730; 93005; 96374; 96375; 99284; J2405

== ENCOUNTER 2018-12-21 22:16 | Emergency (ER) | payer OTHER ==
[~2018-12-21] VITALS: Ht 180.3 cm; Wt 99.0 kg
[~2018-12-21 22:16] MED LIST changes: +ACET-1600 PO; +ARIP10TA33 PO; +CHLO100T6 PO; +CLON0.1T22 PO; +HYDR-3240 PO; +HYDR50TA13 PO; +IBUP200T49 PO; +MIRT15TA4 PO; +TRAZ-137 PO
--- NOTE | 2018-12-21 22:53 | NUR ---
PT HERE FOR SUDDEN ONSET CHEST PAIN THAT STARTED AT 1830. PAIN IS 10/10 ACROSS CHEST AND DOWN LEG. 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 TECH AT BEDSIDE FOR PIV PLACEMENT. WILL MEDICATE WHEN IV IN PLACE. PT PLACED ON ALL MONITORS. CALL LIGHT IN REACH
[2018-12-21] MEDS ORDERED: ONDANSETRON 2MG/ML, 2ML IVPush ONE (23:00)
[2018-12-21 23:23] LABS: BASOPHILS # (AUTO) 0.01 x10^3/uL (0-0.1); BASOPHILS % (AUTO) 0 % (0-1); EOSINOPHILS # (AUTO) 0.11 x10^3/uL (0-0.4); EOSINOPHILS % (AUTO) 2 % (1-7); LYMPHOCYTES # (AUTO) 1.85 x10^3/uL (1-3.4); LYMPHOCYTES % (AUTO) 26 % (22-44); MD NO; MEAN CORPUSCULAR HEMOGLOBIN 27.6 pg (27.5-34.5); MEAN CORPUSCULAR VOLUME 86.2 fL (81-97); MEAN PLATELET VOLUME 8.1 fL (7.4-10.4); MONOCYTES # (AUTO) 0.61 x10^3/uL (0.2-0.8); MONOCYTES % (AUTO) 9 % (2-9); NEUTROPHILS % (AUTO) 64 % (42-75); PLATELET COUNT 357 x10^3/uL (130-400); RED BLOOD COUNT 4.79 x10^6/uL (4.38-5.82); RED CELL DISTRIBUTION WIDTH 20.1 % (9.4-14.8)
[2018-12-21] MEDS ORDERED: MORPHINE SULFATE 4 MG/ML, 1ML ONE (23:28)
[2018-12-21] MEDS ORDERED: ONDANSETRON 2MG/ML, 2ML ONE (23:28)
[2018-12-21 23:29] LABS: ALANINE AMINOTRANSFERASE 24 U/L (12-78); ALBUMIN 3.7 g/dL (3.4-5.0); ANION GAP 14 mmol/L (5-15); CALCIUM 8.6 mg/dL (8.5-10.1); CHLORIDE 111 mmol/L (98-107); CREATININE 1.33 mg/dL (0.7-1.3)
[2018-12-21] MEDS: MORPHINE SULFATE 4 MG/ML, 1ML IVPush PRN (23:32)
[2018-12-21 23:33] LABS: ALKALINE PHOSPHATASE 120 U/L (45-117); TOTAL PROTEIN 7.6 g/dL (6.4-8.2); TROPONIN I < 0.015 ng/mL (0.000-0.045)
[2018-12-21 23:34] LABS: BILIRUBIN,TOTAL < 0.1 mg/dL (0.2-1.0)
--- NOTE | 2018-12-21 23:35 | NUR ---
PIV PLACED. PT MEDICATED FOR PAIN. VSS. CALL LIGHT IN REACH
--- NOTE | 2018-12-21 23:45 | NUR ---
PT IN CT
[2018-12-22] MEDS ORDERED: MORPHINE SULFATE 4 MG/ML, 1ML ONE (00:18)
[2018-12-22] MEDS: MORPHINE SULFATE 4 MG/ML, 1ML IVPush PRN (00:19)
--- NOTE | 2018-12-22 00:21 | NUR ---
PT REMEDICATED FOR PAIN. VSS. WAITING FOR CTA RESULTS. CALL LIGHT IN REACH
[2018-12-22 01:34] VITALS: BP 123/78
[2018-12-22] MEDS ORDERED: ACETAMINOPHEN 500 MG TABLET PO ONE (02:00)
--- NOTE | 2018-12-22 02:09 | NUR ---
PT REQUESTED MORE PAIN MEDICATION. PA ORDERED TYLENOL. RN WENT TO ADMINISTER AND PT IS SLEEPING IN NAD. WILL MEDICATE WHEN PT WAKES. VSS. CALL LIGHT IN REACH
[2018-12-22 02:20] LABS: TROPONIN I < 0.015 ng/mL (0.000-0.045)
[2018-12-22] MEDS ORDERED: METHOCARBAMOL 750 MG TABLET ONE (02:55)
[2018-12-22] MEDS ORDERED: METHOCARBAMOL 750 MG TABLET PO ONE (03:00)
--- NOTE | 2018-12-22 03:03 | NUR ---
Patient given discharge instructions and they have confirmed that they understand the instructions. Patient ambulatory with steady gait.
[2018-12-22] MEDS ORDERED: OMNIPAQUE 350 MG/ML, 100ML BOTTLE ONE (05:11)
== END 2018-12-22 03:26 | disposition home or self-care (01) ==
LOC: ED 22:40
DX: R07.9 Chest pain, unspecified (principal); J44.9 Chronic obstructive pulmonary disease, unspecified; I25.2 Old myocardial infarction; E11.9 Type 2 diabetes mellitus without complications; I10 Essential (primary) hypertension
CPT/HCPCS: 36415; 71045; 71275; 74175; 80053; 83690; 83880; 84484; 85025; 93005; 96374; 96375; 96376; 99284; J2270; J2405; Q9967

== ENCOUNTER 2018-12-30 13:59 | Inpatient (IN) | payer MEDICARE, OTHER ==
[~2018-12-30] VITALS: Ht 180.3 cm; Wt 96.1 kg
[2018-12-30 14:30] VITALS: BP 135/69
[2018-12-30 15:52] VITALS: BP 135/69
[2018-12-30] MEDS ORDERED: ASPI-515 PO (15:56)
[2018-12-30] MEDS ORDERED: POLYETHYLENE GLYCOL 17 GM PACKET PO PRN (16:00)
[2018-12-30] MEDS ORDERED: BISACODYL 10 MG SUPP PR PRN (16:00)
[2018-12-30] MEDS ORDERED: ACETAMINOPHEN 325 MG TABLET PO PRN (16:00)
[2018-12-30] MEDS ORDERED: DOCUSATE 100 MG CAPSULE PO PRN (16:00)
[2018-12-30] MEDS ORDERED: ATOR20TA86 PO (16:04)
[2018-12-30] MEDS ORDERED: OXYC-307 PO (16:04)
[2018-12-30] MEDS ORDERED: BUDE10.2 INH (16:04)
[2018-12-30] MEDS ORDERED: METO25TA91 PO (16:04)
[2018-12-30] MEDS ORDERED: LISI-424 PO (16:04)
[2018-12-30] MEDS: LORazepam 0.5MG TABLET PO PRN (16:22)
[2018-12-30 16:47] LABS: BASOPHILS # (AUTO) 0.03 x10^3/uL (0-0.1); BASOPHILS % (AUTO) 1 % (0-1); EOSINOPHILS # (AUTO) 0.18 x10^3/uL (0-0.4); EOSINOPHILS % (AUTO) 4 % (1-7); LYMPHOCYTES # (AUTO) 1.57 x10^3/uL (1-3.4); LYMPHOCYTES % (AUTO) 31 % (22-44); MD NO; MEAN CORPUSCULAR HEMOGLOBIN 27.8 pg (27.5-34.5); MEAN CORPUSCULAR VOLUME 86.9 fL (81-97); MEAN PLATELET VOLUME 8.3 fL (7.4-10.4); MONOCYTES # (AUTO) 0.66 x10^3/uL (0.2-0.8); MONOCYTES % (AUTO) 13 % (2-9); NEUTROPHILS # (AUTO) 2.66 x10^3/uL (1.8-6.8); NEUTROPHILS % (AUTO) 52 % (42-75); PLATELET COUNT 349 x10^3/uL (130-400); RED BLOOD COUNT 4.45 x10^6/uL (4.38-5.82); RED CELL DISTRIBUTION WIDTH 19.5 % (9.4-14.8)
[2018-12-30 17:11] LABS: CHOL/HDL RATIO 4.1; FREE T4 (FREE THYROXINE) 0.84 ng/dL (0.76-1.46); LDL/HDL RATIO 2.4 (0.5-3.0); THYROID STIMULATING HORMONE 0.586 mIU/L (0.358-3.740)
[2018-12-30] MEDS ORDERED: OXYcodone/APAP 10/325MG TABLET ONE (18:13)
[2018-12-30] MEDS: OXYcodone/APAP 10/325MG TABLET PO PRN ×2 (18:15→22:17)
[2018-12-30] MEDS ORDERED: ALBUTEROL SULFATE 2.5MG/0.5ML NPPB SCH (19:30)
[2018-12-30 19:55] VITALS: BP 126/82
[2018-12-30] MEDS: BUDESONIDE 0.5 MG/2 ML INHA NPPB SCH (20:10)
[2018-12-30] MEDS: ALBUTEROL SULFATE 2.5 MG/3 ML NPPB SCH (20:10)
[2018-12-30 20:36] LABS: CULTURE INDICATED? YES; MICROSCOPIC INDICATED
[2018-12-30] MEDS: TRAZODONE 100MG TABLET PO SCH (20:50)
[2018-12-30] MEDS: hydrOXyzine 50MG TABLET PO SCH (20:50)
[2018-12-30] MEDS: HYDROcodone/APAP 5/325 TABLET PO SCH (20:50)
[2018-12-30] MEDS: SERTRALINE 100MG TABLET PO SCH (20:50)
[2018-12-30] MEDS: ATORVASTATIN 20 MG TABLET PO SCH (20:50)
[2018-12-30] MEDS: LACTULOSE 20 GM/30 ML UDC PO SCH (20:51)
[2018-12-30] MEDS ORDERED: TEMPLATE NON-FORMULARY MED. (Budesonide/Formoterol Fumarate (Symbicort 160-4.5 Mcg Inhaler INH SCH (21:00)
[2018-12-31] MEDS: OXYcodone/APAP 10/325MG TABLET PO PRN ×4 (02:17→22:16)
[2018-12-31] MEDS: ALBUTEROL SULFATE 2.5 MG/3 ML NPPB SCH ×4 (02:30→20:00)
[2018-12-31] MEDS: hydrOXyzine 50MG TABLET PO SCH ×5 (05:34→20:41)
[2018-12-31 07:30] VITALS: BP 108/71
[2018-12-31 07:32] LABS: ALANINE AMINOTRANSFERASE 21 U/L (12-78); ALBUMIN 3.1 g/dL (3.4-5.0); ANION GAP 4 mmol/L (5-15); CHLORIDE 112 mmol/L (98-107)
[2018-12-31 07:35] LABS: ALKALINE PHOSPHATASE 100 U/L (45-117); BILIRUBIN,TOTAL 0.2 mg/dL (0.2-1.0); TOTAL PROTEIN 6.3 g/dL (6.4-8.2)
[2018-12-31] MEDS: OMEPRAZOLE 20 MG CAPSULE.DR PO SCH (08:08)
[2018-12-31] MEDS: LISINOPRIL 5 MG TABLET PO SCH (08:08)
[2018-12-31] MEDS: CLOPIDOGREL 75 MG TABLET PO SCH (08:08)
[2018-12-31] MEDS: HYDROcodone/APAP 5/325 TABLET PO SCH ×3 (08:08→20:41)
[2018-12-31] MEDS: LACTULOSE 20 GM/30 ML UDC PO SCH ×2 (08:09→20:41)
[2018-12-31] MEDS: NICOTINE 21 MG/24 HR PATCH.TD24 TD SCH (08:10)
[2018-12-31] MEDS: BUDESONIDE 0.5 MG/2 ML INHA NPPB SCH ×2 (09:00→21:00)
[2018-12-31 19:27] VITALS: BP 121/83
[2018-12-31] MEDS: SERTRALINE 100MG TABLET PO SCH (20:41)
[2018-12-31] MEDS: LORazepam 0.5MG TABLET PO PRN (20:41)
[2018-12-31] MEDS: TRAZODONE 100MG TABLET PO SCH (20:41)
[2018-12-31] MEDS: ATORVASTATIN 20 MG TABLET PO SCH (20:42)
[2019-01-01] MEDS: ALBUTEROL SULFATE 2.5 MG/3 ML NPPB SCH ×4 (02:00→19:42)
[2019-01-01] MEDS: OXYcodone/APAP 10/325MG TABLET PO PRN ×3 (02:30→21:13)
[2019-01-01] MEDS: hydrOXyzine 50MG TABLET PO SCH ×5 (05:53→20:19)
[2019-01-01 07:22] VITALS: BP 107/67
[2019-01-01] MEDS: BUDESONIDE 0.5 MG/2 ML INHA NPPB SCH ×2 (07:30→19:42)
[2019-01-01] MEDS: HYDROcodone/APAP 5/325 TABLET PO SCH ×3 (08:11→20:19)
[2019-01-01] MEDS: LISINOPRIL 5 MG TABLET PO SCH (08:11)
[2019-01-01] MEDS: LACTULOSE 20 GM/30 ML UDC PO SCH ×3 (08:11→20:21)
[2019-01-01] MEDS: CLOPIDOGREL 75 MG TABLET PO SCH (08:11)
[2019-01-01] MEDS: OMEPRAZOLE 20 MG CAPSULE.DR PO SCH (08:12)
[2019-01-01] MEDS: NICOTINE 21 MG/24 HR PATCH.TD24 TD SCH (08:12)
[2019-01-01 19:49] VITALS: BP 111/66
[2019-01-01] MEDS: SERTRALINE 100MG TABLET PO SCH (20:19)
[2019-01-01] MEDS: LORazepam 0.5MG TABLET PO PRN (20:19)
[2019-01-01] MEDS: TRAZODONE 100MG TABLET PO SCH (20:19)
[2019-01-01] MEDS: ATORVASTATIN 20 MG TABLET PO SCH (20:19)
[2019-01-02] MEDS: ALBUTEROL SULFATE 2.5 MG/3 ML NPPB SCH ×4 (02:00→20:00)
[2019-01-02] MEDS: OXYcodone/APAP 10/325MG TABLET PO PRN ×4 (02:51→23:25)
[2019-01-02] MEDS: hydrOXyzine 50MG TABLET PO SCH ×5 (05:54→20:14)
[2019-01-02 07:25] VITALS: BP 104/64
[2019-01-02] MEDS: BUDESONIDE 0.5 MG/2 ML INHA NPPB SCH ×2 (09:00→21:00)
[2019-01-02] MEDS: OMEPRAZOLE 20 MG CAPSULE.DR PO SCH (09:19)
[2019-01-02] MEDS: CLOPIDOGREL 75 MG TABLET PO SCH (09:19)
[2019-01-02] MEDS: HYDROcodone/APAP 5/325 TABLET PO SCH ×3 (09:20→20:13)
[2019-01-02] MEDS: LACTULOSE 20 GM/30 ML UDC PO SCH ×2 (09:20→20:13)
[2019-01-02] MEDS: LISINOPRIL 5 MG TABLET PO SCH (09:20)
[2019-01-02] MEDS: NICOTINE 21 MG/24 HR PATCH.TD24 TD SCH (09:20)
[2019-01-02] MEDS: LORazepam 0.5MG TABLET PO PRN (19:23)
[2019-01-02 19:42] VITALS: BP_SYST 107; BP_SYST 130; BP_DIAS 68; BP_DIAS 74
[2019-01-02] MEDS: SERTRALINE 100MG TABLET PO SCH (20:13)
[2019-01-02] MEDS: TRAZODONE 100MG TABLET PO SCH (20:13)
[2019-01-02] MEDS: ATORVASTATIN 20 MG TABLET PO SCH (20:13)
[2019-01-03] MEDS: ALBUTEROL SULFATE 2.5 MG/3 ML NPPB SCH ×5 (02:00→20:34)
[2019-01-03] MEDS: OXYcodone/APAP 10/325MG TABLET PO PRN ×4 (03:43→21:51)
[2019-01-03] MEDS: LORazepam 0.5MG TABLET PO PRN ×3 (03:43→23:48)
[2019-01-03] MEDS: hydrOXyzine 50MG TABLET PO SCH ×5 (05:30→19:57)
[2019-01-03 07:25] VITALS: BP 108/70
[2019-01-03] MEDS: OMEPRAZOLE 20 MG CAPSULE.DR PO SCH (08:41)
[2019-01-03] MEDS: HYDROcodone/APAP 5/325 TABLET PO SCH ×3 (08:41→19:57)
[2019-01-03] MEDS: CLOPIDOGREL 75 MG TABLET PO SCH (08:41)
[2019-01-03] MEDS: LISINOPRIL 5 MG TABLET PO SCH (08:41)
[2019-01-03] MEDS: LACTULOSE 20 GM/30 ML UDC PO SCH ×2 (08:42→19:57)
[2019-01-03] MEDS: NICOTINE 21 MG/24 HR PATCH.TD24 TD SCH (08:56)
[2019-01-03] MEDS: BUDESONIDE 0.5 MG/2 ML INHA NPPB SCH ×2 (09:00→20:34)
[2019-01-03 19:43] VITALS: BP 107/66
[2019-01-03] MEDS: SERTRALINE 100MG TABLET PO SCH (19:57)
[2019-01-03] MEDS: TRAZODONE 100MG TABLET PO SCH (19:57)
[2019-01-03] MEDS: ATORVASTATIN 20 MG TABLET PO SCH (19:57)
[2019-01-04] MEDS: OXYcodone/APAP 10/325MG TABLET PO PRN ×5 (01:53→19:28)
[2019-01-04] MEDS: ALBUTEROL SULFATE 2.5 MG/3 ML NPPB SCH ×4 (03:00→21:05)
[2019-01-04] MEDS: hydrOXyzine 50MG TABLET PO SCH ×5 (06:01→21:29)
[2019-01-04 07:45] VITALS: BP 108/69
[2019-01-04] MEDS: LISINOPRIL 5 MG TABLET PO SCH (08:25)
[2019-01-04] MEDS: CLOPIDOGREL 75 MG TABLET PO SCH (08:25)
[2019-01-04] MEDS: LACTULOSE 20 GM/30 ML UDC PO SCH ×2 (08:25→21:29)
[2019-01-04] MEDS: HYDROcodone/APAP 5/325 TABLET PO SCH ×3 (08:25→21:29)
[2019-01-04] MEDS: OMEPRAZOLE 20 MG CAPSULE.DR PO SCH (08:26)
[2019-01-04] MEDS: NICOTINE 21 MG/24 HR PATCH.TD24 TD SCH (08:27)
[2019-01-04] MEDS: BUDESONIDE 0.5 MG/2 ML INHA NPPB SCH ×2 (09:00→21:05)
[2019-01-04 19:52] VITALS: BP 105/63
[2019-01-04] MEDS: ATORVASTATIN 20 MG TABLET PO SCH (21:29)
[2019-01-04] MEDS: TRAZODONE 100MG TABLET PO SCH (21:29)
[2019-01-04] MEDS: SERTRALINE 100MG TABLET PO SCH (21:29)
[2019-01-05] MEDS: OXYcodone/APAP 10/325MG TABLET PO PRN ×5 (01:53→21:54)
[2019-01-05] MEDS: hydrOXyzine 50MG TABLET PO SCH ×5 (04:56→20:01)
[2019-01-05 07:15] VITALS: BP 112/72
[2019-01-05] MEDS: HYDROcodone/APAP 5/325 TABLET PO SCH ×3 (08:43→20:01)
[2019-01-05] MEDS: OMEPRAZOLE 20 MG CAPSULE.DR PO SCH (08:43)
[2019-01-05] MEDS: LISINOPRIL 5 MG TABLET PO SCH (08:43)
[2019-01-05] MEDS: LACTULOSE 20 GM/30 ML UDC PO SCH ×2 (08:43→20:01)
[2019-01-05] MEDS: CLOPIDOGREL 75 MG TABLET PO SCH (08:43)
[2019-01-05] MEDS: NICOTINE 21 MG/24 HR PATCH.TD24 TD SCH (08:44)
[2019-01-05] MEDS: ALBUTEROL SULFATE 2.5 MG/3 ML NPPB SCH ×3 (09:05→21:00)
[2019-01-05] MEDS: BUDESONIDE 0.5 MG/2 ML INHA NPPB SCH ×2 (09:05→21:00)
[2019-01-05 20:00] VITALS: BP 117/76
[2019-01-05] MEDS: SERTRALINE 100MG TABLET PO SCH (20:01)
[2019-01-05] MEDS: ATORVASTATIN 20 MG TABLET PO SCH (20:01)
[2019-01-05] MEDS: TRAZODONE 100MG TABLET PO SCH (20:01)
[2019-01-06] MEDS: ALBUTEROL SULFATE 2.5 MG/3 ML NPPB SCH ×4 (03:21→21:00)
[2019-01-06] MEDS: hydrOXyzine 50MG TABLET PO SCH ×5 (05:25→20:15)
[2019-01-06] MEDS: OXYcodone/APAP 10/325MG TABLET PO PRN ×5 (05:25→22:10)
[2019-01-06 07:31] VITALS: BP 101/57
[2019-01-06] MEDS: CLOPIDOGREL 75 MG TABLET PO SCH (08:18)
[2019-01-06] MEDS: HYDROcodone/APAP 5/325 TABLET PO SCH ×3 (08:18→20:15)
[2019-01-06] MEDS: LISINOPRIL 5 MG TABLET PO SCH (08:18)
[2019-01-06] MEDS: NICOTINE 21 MG/24 HR PATCH.TD24 TD SCH (08:18)
[2019-01-06] MEDS: LACTULOSE 20 GM/30 ML UDC PO SCH ×3 (08:18→20:15)
[2019-01-06] MEDS: OMEPRAZOLE 20 MG CAPSULE.DR PO SCH (08:18)
[2019-01-06] MEDS: BUDESONIDE 0.5 MG/2 ML INHA NPPB SCH ×2 (09:00→21:00)
[2019-01-06 19:58] VITALS: BP 103/65
[2019-01-06] MEDS: TRAZODONE 100MG TABLET PO SCH (20:15)
[2019-01-06] MEDS: OLANZAPINE 2.5 MG TABLET PO SCH (20:15)
[2019-01-06] MEDS: SERTRALINE 100MG TABLET PO SCH (20:15)
[2019-01-06] MEDS: ATORVASTATIN 20 MG TABLET PO SCH (20:16)
[2019-01-07] MEDS: ALBUTEROL SULFATE 2.5 MG/3 ML NPPB SCH ×4 (03:00→19:56)
[2019-01-07] MEDS: OXYcodone/APAP 10/325MG TABLET PO PRN ×5 (04:12→23:18)
[2019-01-07] MEDS: hydrOXyzine 50MG TABLET PO SCH ×5 (05:35→20:08)
[2019-01-07 07:20] VITALS: BP 107/70
[2019-01-07] MEDS: OMEPRAZOLE 20 MG CAPSULE.DR PO SCH (08:11)
[2019-01-07] MEDS: LACTULOSE 20 GM/30 ML UDC PO SCH ×2 (08:11→20:08)
[2019-01-07] MEDS: HYDROcodone/APAP 5/325 TABLET PO SCH ×3 (08:12→20:08)
[2019-01-07] MEDS: CLOPIDOGREL 75 MG TABLET PO SCH (08:12)
[2019-01-07] MEDS: NICOTINE 21 MG/24 HR PATCH.TD24 TD SCH (08:12)
[2019-01-07] MEDS: LISINOPRIL 5 MG TABLET PO SCH (08:12)
[2019-01-07] MEDS: BUDESONIDE 0.5 MG/2 ML INHA NPPB SCH ×2 (08:45→19:56)
[2019-01-07 19:51] VITALS: BP 103/66
[2019-01-07] MEDS: OLANZAPINE 2.5 MG TABLET PO SCH (20:08)
[2019-01-07] MEDS: SERTRALINE 100MG TABLET PO SCH (20:08)
[2019-01-07] MEDS: TRAZODONE 100MG TABLET PO SCH (20:08)
[2019-01-07] MEDS: ATORVASTATIN 20 MG TABLET PO SCH (20:08)
[2019-01-08] MEDS: ALBUTEROL SULFATE 2.5 MG/3 ML NPPB SCH ×4 (03:10→21:10)
[2019-01-08] MEDS: OXYcodone/APAP 10/325MG TABLET PO PRN ×5 (03:22→23:39)
[2019-01-08] MEDS: hydrOXyzine 50MG TABLET PO SCH ×5 (05:43→20:11)
[2019-01-08 07:12] VITALS: BP 103/63
[2019-01-08] MEDS: LISINOPRIL 5 MG TABLET PO SCH (08:10)
[2019-01-08] MEDS: OMEPRAZOLE 20 MG CAPSULE.DR PO SCH (08:10)
[2019-01-08] MEDS: HYDROcodone/APAP 5/325 TABLET PO SCH ×3 (08:10→20:11)
[2019-01-08] MEDS: CLOPIDOGREL 75 MG TABLET PO SCH (08:10)
[2019-01-08] MEDS: LACTULOSE 20 GM/30 ML UDC PO SCH ×2 (08:10→20:13)
[2019-01-08] MEDS: NICOTINE 21 MG/24 HR PATCH.TD24 TD SCH (08:10)
[2019-01-08] MEDS: BUDESONIDE 0.5 MG/2 ML INHA NPPB SCH ×2 (09:00→21:10)
[2019-01-08 19:44] VITALS: BP 99/56
[2019-01-08] MEDS: ATORVASTATIN 20 MG TABLET PO SCH (20:10)
[2019-01-08] MEDS: TRAZODONE 100MG TABLET PO SCH (20:10)
[2019-01-08] MEDS: OLANZAPINE 2.5 MG TABLET PO SCH (20:11)
[2019-01-08] MEDS: SERTRALINE 100MG TABLET PO SCH (20:11)
[2019-01-09] MEDS: ALBUTEROL SULFATE 2.5 MG/3 ML NPPB SCH ×4 (03:00→21:00)
[2019-01-09] MEDS: OXYcodone/APAP 10/325MG TABLET PO PRN ×4 (05:29→18:27)
[2019-01-09] MEDS: hydrOXyzine 50MG TABLET PO SCH ×5 (05:29→20:57)
[2019-01-09 07:29] VITALS: BP 108/69
[2019-01-09] MEDS: LACTULOSE 20 GM/30 ML UDC PO SCH ×2 (08:25→20:57)
[2019-01-09] MEDS: NICOTINE 21 MG/24 HR PATCH.TD24 TD SCH (08:25)
[2019-01-09] MEDS: LISINOPRIL 5 MG TABLET PO SCH (08:26)
[2019-01-09] MEDS: OMEPRAZOLE 20 MG CAPSULE.DR PO SCH (08:26)
[2019-01-09] MEDS: CLOPIDOGREL 75 MG TABLET PO SCH (08:26)
[2019-01-09] MEDS: HYDROcodone/APAP 5/325 TABLET PO SCH ×3 (08:26→20:57)
[2019-01-09] MEDS: BUDESONIDE 0.5 MG/2 ML INHA NPPB SCH ×2 (09:30→21:00)
[2019-01-09 20:00] VITALS: BP 101/65
[2019-01-09] MEDS: ATORVASTATIN 20 MG TABLET PO SCH (20:57)
[2019-01-09] MEDS: OLANZAPINE 5 MG TABLET PO SCH (20:57)
[2019-01-09] MEDS: TRAZODONE 100MG TABLET PO SCH (20:57)
[2019-01-09] MEDS: SERTRALINE 100MG TABLET PO SCH (20:57)
[2019-01-10] MEDS: OXYcodone/APAP 10/325MG TABLET PO PRN ×4 (00:30→15:38)
[2019-01-10] MEDS: ALBUTEROL SULFATE 2.5 MG/3 ML NPPB SCH ×4 (02:49→20:10)
[2019-01-10] MEDS: hydrOXyzine 50MG TABLET PO SCH ×5 (05:41→21:19)
[2019-01-10 07:18] VITALS: BP 102/62
[2019-01-10] MEDS: BUDESONIDE 0.5 MG/2 ML INHA NPPB SCH ×2 (08:05→20:10)
[2019-01-10] MEDS: LACTULOSE 20 GM/30 ML UDC PO SCH ×2 (08:34→21:19)
[2019-01-10] MEDS: OMEPRAZOLE 20 MG CAPSULE.DR PO SCH (08:34)
[2019-01-10] MEDS: CLOPIDOGREL 75 MG TABLET PO SCH (08:35)
[2019-01-10] MEDS: HYDROcodone/APAP 5/325 TABLET PO SCH ×3 (08:35→21:19)
[2019-01-10] MEDS: NICOTINE 21 MG/24 HR PATCH.TD24 TD SCH (08:35)
[2019-01-10] MEDS: LISINOPRIL 5 MG TABLET PO SCH (08:35)
[2019-01-10 19:32] VITALS: BP 114/64
[2019-01-10] MEDS: TRAZODONE 100MG TABLET PO SCH (21:19)
[2019-01-10] MEDS: ATORVASTATIN 20 MG TABLET PO SCH (21:19)
[2019-01-10] MEDS: SERTRALINE 100MG TABLET PO SCH (21:19)
[2019-01-10] MEDS: OLANZAPINE 5 MG TABLET PO SCH (21:19)
[2019-01-11] MEDS: OXYcodone/APAP 10/325MG TABLET PO PRN ×5 (01:12→22:58)
[2019-01-11] MEDS: ALBUTEROL SULFATE 2.5 MG/3 ML NPPB SCH ×4 (03:00→19:14)
[2019-01-11] MEDS: hydrOXyzine 50MG TABLET PO SCH ×5 (05:23→20:08)
[2019-01-11] MEDS: BUDESONIDE 0.5 MG/2 ML INHA NPPB SCH ×2 (07:35→19:14)
[2019-01-11 08:20] VITALS: BP 108/63
[2019-01-11] MEDS: OMEPRAZOLE 20 MG CAPSULE.DR PO SCH (08:21)
[2019-01-11] MEDS: LACTULOSE 20 GM/30 ML UDC PO SCH ×2 (08:21→20:08)
[2019-01-11] MEDS: HYDROcodone/APAP 5/325 TABLET PO SCH ×3 (08:21→20:07)
[2019-01-11] MEDS: LISINOPRIL 5 MG TABLET PO SCH (08:21)
[2019-01-11] MEDS: CLOPIDOGREL 75 MG TABLET PO SCH (08:21)
[2019-01-11] MEDS: NICOTINE 21 MG/24 HR PATCH.TD24 TD SCH (08:23)
[2019-01-11 19:39] VITALS: BP 103/67
[2019-01-11] MEDS: SERTRALINE 100MG TABLET PO SCH (20:06)
[2019-01-11] MEDS: ATORVASTATIN 20 MG TABLET PO SCH (20:06)
[2019-01-11] MEDS: TRAZODONE 100MG TABLET PO SCH (20:07)
[2019-01-11] MEDS: OLANZAPINE 5 MG TABLET PO SCH (20:07)
[2019-01-11] MEDS: LORazepam 0.5MG TABLET PO PRN (22:58)
[2019-01-12] MEDS: ALBUTEROL SULFATE 2.5 MG/3 ML NPPB SCH ×4 (03:00→20:35)
[2019-01-12] MEDS: OXYcodone/APAP 10/325MG TABLET PO PRN ×4 (05:31→22:21)
[2019-01-12 07:40] VITALS: BP 114/73
[2019-01-12] MEDS: BUDESONIDE 0.5 MG/2 ML INHA NPPB SCH ×2 (07:40→20:35)
[2019-01-12] MEDS: CLOPIDOGREL 75 MG TABLET PO SCH (09:11)
[2019-01-12] MEDS: HYDROcodone/APAP 5/325 TABLET PO SCH ×3 (09:11→20:09)
[2019-01-12] MEDS: LACTULOSE 20 GM/30 ML UDC PO SCH ×2 (09:11→20:09)
[2019-01-12] MEDS: OMEPRAZOLE 20 MG CAPSULE.DR PO SCH (09:11)
[2019-01-12] MEDS: LISINOPRIL 5 MG TABLET PO SCH (09:12)
[2019-01-12] MEDS: NICOTINE 21 MG/24 HR PATCH.TD24 TD SCH (09:12)
[2019-01-12] MEDS: hydrOXyzine 50MG TABLET PO SCH ×4 (10:00→20:09)
[2019-01-12 19:45] VITALS: BP 104/68
[2019-01-12] MEDS: SERTRALINE 100MG TABLET PO SCH (20:09)
[2019-01-12] MEDS: ATORVASTATIN 20 MG TABLET PO SCH (20:09)
[2019-01-12] MEDS: TRAZODONE 100MG TABLET PO SCH (20:09)
[2019-01-12] MEDS: OLANZAPINE 5 MG TABLET PO SCH (20:09)
[2019-01-13] MEDS: OXYcodone/APAP 10/325MG TABLET PO PRN ×5 (03:19→22:08)
[2019-01-13] MEDS: ALBUTEROL SULFATE 2.5 MG/3 ML NPPB SCH ×4 (03:30→21:00)
[2019-01-13] MEDS: hydrOXyzine 50MG TABLET PO SCH ×5 (06:03→20:25)
[2019-01-13 07:35] VITALS: BP 107/78
[2019-01-13] MEDS: BUDESONIDE 0.5 MG/2 ML INHA NPPB SCH ×2 (07:50→21:00)
[2019-01-13] MEDS: LACTULOSE 20 GM/30 ML UDC PO SCH ×2 (08:58→20:25)
[2019-01-13] MEDS: NICOTINE 21 MG/24 HR PATCH.TD24 TD SCH (08:59)
[2019-01-13] MEDS: OMEPRAZOLE 20 MG CAPSULE.DR PO SCH (08:59)
[2019-01-13] MEDS: CLOPIDOGREL 75 MG TABLET PO SCH (08:59)
[2019-01-13] MEDS: HYDROcodone/APAP 5/325 TABLET PO SCH ×3 (08:59→20:24)
[2019-01-13] MEDS: LISINOPRIL 5 MG TABLET PO SCH (08:59)
[2019-01-13 19:36] VITALS: BP 116/72
[2019-01-13] MEDS: OLANZAPINE 5 MG TABLET PO SCH (20:24)
[2019-01-13] MEDS: SERTRALINE 100MG TABLET PO SCH (20:24)
[2019-01-13] MEDS: ATORVASTATIN 20 MG TABLET PO SCH (20:25)
[2019-01-13] MEDS: TRAZODONE 100MG TABLET PO SCH (20:25)
[2019-01-14] MEDS: ALBUTEROL SULFATE 2.5 MG/3 ML NPPB SCH ×4 (03:23→21:10)
[2019-01-14] MEDS: OXYcodone/APAP 10/325MG TABLET PO PRN ×5 (03:50→23:06)
[2019-01-14] MEDS: hydrOXyzine 50MG TABLET PO SCH ×5 (06:22→20:05)
[2019-01-14 07:33] VITALS: BP 106/68
[2019-01-14] MEDS: BUDESONIDE 0.5 MG/2 ML INHA NPPB SCH ×2 (07:45→21:10)
[2019-01-14] MEDS: LACTULOSE 20 GM/30 ML UDC PO SCH ×2 (09:18→20:05)
[2019-01-14] MEDS: CLOPIDOGREL 75 MG TABLET PO SCH (09:18)
[2019-01-14] MEDS: NICOTINE 21 MG/24 HR PATCH.TD24 TD SCH (09:19)
[2019-01-14] MEDS: LISINOPRIL 5 MG TABLET PO SCH (09:19)
[2019-01-14] MEDS: OMEPRAZOLE 20 MG CAPSULE.DR PO SCH (09:19)
[2019-01-14] MEDS: HYDROcodone/APAP 5/325 TABLET PO SCH ×3 (10:18→20:05)
[2019-01-14 19:48] VITALS: BP 99/62
[2019-01-14] MEDS: OLANZAPINE 5 MG TABLET PO SCH (20:05)
[2019-01-14] MEDS: ATORVASTATIN 20 MG TABLET PO SCH (20:05)
[2019-01-14] MEDS: TRAZODONE 100MG TABLET PO SCH (20:05)
[2019-01-14] MEDS: SERTRALINE 100MG TABLET PO SCH (20:05)
[2019-01-14] MEDS: LORazepam 0.5MG TABLET PO PRN (23:06)
[2019-01-15] MEDS: ALBUTEROL SULFATE 2.5 MG/3 ML NPPB SCH ×4 (02:57→21:20)
[2019-01-15] MEDS: OXYcodone/APAP 10/325MG TABLET PO PRN ×5 (04:08→22:13)
[2019-01-15] MEDS: hydrOXyzine 50MG TABLET PO SCH ×5 (05:18→20:03)
[2019-01-15 07:22] VITALS: BP 107/68
[2019-01-15] MEDS: BUDESONIDE 0.5 MG/2 ML INHA NPPB SCH ×2 (07:30→21:15)
[2019-01-15] MEDS: LACTULOSE 20 GM/30 ML UDC PO SCH ×2 (08:10→20:03)
[2019-01-15] MEDS: OMEPRAZOLE 20 MG CAPSULE.DR PO SCH (08:10)
[2019-01-15] MEDS: LISINOPRIL 5 MG TABLET PO SCH (08:11)
[2019-01-15] MEDS: CLOPIDOGREL 75 MG TABLET PO SCH (08:11)
[2019-01-15] MEDS: NICOTINE 21 MG/24 HR PATCH.TD24 TD SCH (08:11)
[2019-01-15] MEDS: HYDROcodone/APAP 5/325 TABLET PO SCH ×3 (08:51→20:03)
[2019-01-15 19:36] VITALS: BP 107/67
[2019-01-15] MEDS: SERTRALINE 100MG TABLET PO SCH (20:03)
[2019-01-15] MEDS: ATORVASTATIN 20 MG TABLET PO SCH (20:03)
[2019-01-15] MEDS: OLANZAPINE 5 MG TABLET PO SCH (20:03)
[2019-01-15] MEDS: TRAZODONE 100MG TABLET PO SCH (20:03)
[2019-01-16] MEDS: OXYcodone/APAP 10/325MG TABLET PO PRN ×6 (02:24→22:39)
[2019-01-16] MEDS: ALBUTEROL SULFATE 2.5 MG/3 ML NPPB SCH ×4 (03:15→21:00)
[2019-01-16] MEDS: hydrOXyzine 50MG TABLET PO SCH ×5 (06:30→20:18)
[2019-01-16] MEDS: BUDESONIDE 0.5 MG/2 ML INHA NPPB SCH ×2 (07:00→21:00)
[2019-01-16 07:29] VITALS: BP 108/66
[2019-01-16] MEDS: LISINOPRIL 5 MG TABLET PO SCH (08:12)
[2019-01-16] MEDS: CLOPIDOGREL 75 MG TABLET PO SCH (08:12)
[2019-01-16] MEDS: LACTULOSE 20 GM/30 ML UDC PO SCH ×2 (08:13→20:18)
[2019-01-16] MEDS: HYDROcodone/APAP 5/325 TABLET PO SCH ×3 (08:13→20:18)
[2019-01-16] MEDS: OMEPRAZOLE 20 MG CAPSULE.DR PO SCH (08:13)
[2019-01-16] MEDS: NICOTINE 21 MG/24 HR PATCH.TD24 TD SCH (08:25)
[2019-01-16 19:30] VITALS: BP 108/67
[2019-01-16] MEDS ORDERED: SERT100T32 PO (19:42)
[2019-01-16] MEDS ORDERED: TRAZ-137 PO (19:42)
[2019-01-16] MEDS ORDERED: OLAN5TAB9 PO (19:42)
[2019-01-16] MEDS ORDERED: NICO-487 TD (19:42)
[2019-01-16] MEDS: TRAZODONE 100MG TABLET PO SCH (20:18)
[2019-01-16] MEDS: ATORVASTATIN 20 MG TABLET PO SCH (20:18)
[2019-01-16] MEDS: SERTRALINE 100MG TABLET PO SCH (20:18)
[2019-01-16] MEDS: OLANZAPINE 5 MG TABLET PO SCH (20:18)
[2019-01-17] MEDS: OXYcodone/APAP 10/325MG TABLET PO PRN ×3 (02:46→11:03)
[2019-01-17] MEDS: ALBUTEROL SULFATE 2.5 MG/3 ML NPPB SCH ×2 (03:00→07:10)
[2019-01-17] MEDS: hydrOXyzine 50MG TABLET PO SCH ×2 (06:40→08:08)
[2019-01-17 07:30] VITALS: BP 110/69
[2019-01-17] MEDS: CLOPIDOGREL 75 MG TABLET PO SCH (08:08)
[2019-01-17] MEDS: LACTULOSE 20 GM/30 ML UDC PO SCH (08:08)
[2019-01-17] MEDS: HYDROcodone/APAP 5/325 TABLET PO SCH (08:08)
[2019-01-17] MEDS: LISINOPRIL 5 MG TABLET PO SCH (08:08)
[2019-01-17] MEDS: OMEPRAZOLE 20 MG CAPSULE.DR PO SCH (08:08)
[2019-01-17] MEDS: NICOTINE 21 MG/24 HR PATCH.TD24 TD SCH (08:08)
== END 2019-01-17 13:10 | DRG 885 ==
LOC: 3E 14:49
PROVIDERS: ADMIT Counselor Mental Health; ATTEND Counselor Mental Health
DX: F33.3 Major depressive disorder, recurrent, severe with psychotic symptoms (principal); R45.851 Suicidal ideations; J98.11 Atelectasis; F11.20 Opioid dependence, uncomplicated; F02.80 Dementia in other diseases classified elsewhere, unspecified severity, without behavioral disturbance, psychotic disturbance, mood disturbance, and anxiety; E78.5 Hyperlipidemia, unspecified; F41.1 Generalized anxiety disorder; G30.9 Alzheimer's disease, unspecified; G47.00 Insomnia, unspecified; G89.29 Other chronic pain; I10 Essential (primary) hypertension; I25.10 Atherosclerotic heart disease of native coronary artery without angina pectoris; J44.9 Chronic obstructive pulmonary disease, unspecified; K21.9 Gastro-esophageal reflux disease without esophagitis; M19.90 Unspecified osteoarthritis, unspecified site; Z72.0 Tobacco use; Z79.899 Other long term (current) drug therapy; Z99.81 Dependence on supplemental oxygen; Z71.6 Tobacco abuse counseling; Z82.49 Family history of ischemic heart disease and other diseases of the circulatory system
CPT/HCPCS: 36415; 71045; 80053; 80061; 81001; 82140; 82607; 84439; 84443; 85025; 86592; 87086; 93005; 94640; J7613; J7626; 92522-GN

== ENCOUNTER 2019-01-25 23:22 | Emergency (ER) | payer MEDICARE ==
[~2019-01-25 23:22] MED LIST changes: +ASPI-515 PO; +ATOR20TA86 PO; +BUDE10.2 INH; +LISI-424 PO; +METO25TA91 PO; +NICO-487 TD; +OLAN5TAB9 PO; +OXYC-307 PO; +SERT100T32 PO
--- NOTE | 2019-01-26 00:07 | NUR ---
PT DECIDED TO AMA AT THIS TIME. PT VERBALIZED UNDERSTANDING OF RISK OF GOING HOME AND PT STILL CHOOSING TO GO HOME. PT SIGNED AMA FORM.
== END 2019-01-26 00:11 | disposition left against medical advice (07) ==
LOC: ED 01-26 00:05
DX: R07.89 Other chest pain (principal); Z53.21 Procedure and treatment not carried out due to patient leaving prior to being seen by health care provider
CPT/HCPCS: 93005

== ENCOUNTER 2019-01-26 04:02 | Emergency (ER) | payer SELFPAY ==
[~2019-01-26] VITALS: Ht 180.3 cm; Wt 98.0 kg
--- NOTE | 2019-01-26 04:26 | NUR ---
ASSESSMENT MADE. CHART UP FOR MD TO SEE.
[2019-01-26] MEDS ORDERED: SODIUM CHLORIDE FLUSH 10ML SYR IVF ONE (05:00)
[2019-01-26] MEDS ORDERED: ONDANSETRON 2MG/ML, 2ML IVPush ONE (05:00)
[2019-01-26] MEDS ORDERED: ONDANSETRON 2MG/ML, 2ML ONE (05:01)
[2019-01-26] MEDS ORDERED: MORPHINE SULFATE 4 MG/ML, 1ML ONE ×2 (05:03→06:12)
[2019-01-26] MEDS: MORPHINE SULFATE 4 MG/ML, 1ML IVPush PRN ×2 (05:12→06:19)
[2019-01-26] MEDS ORDERED: MAALOX/HYOSCYAMINE/LIDOCAINE 45 ML BTL ONE (05:17)
[2019-01-26 05:21] LABS: BASOPHILS # (AUTO) 0.03 x10^3/uL (0-0.1); BASOPHILS % (AUTO) 0 % (0-1); EOSINOPHILS # (AUTO) 0.12 x10^3/uL (0-0.4); EOSINOPHILS % (AUTO) 2 % (1-7); LYMPHOCYTES # (AUTO) 2.04 x10^3/uL (1-3.4); LYMPHOCYTES % (AUTO) 25 % (22-44); MD NO; MEAN CORPUSCULAR HEMOGLOBIN 27.8 pg (27.5-34.5); MEAN CORPUSCULAR HGB CONC 32.3 g/dL (33.2-36.2); MEAN CORPUSCULAR VOLUME 85.9 fL (81-97); MEAN PLATELET VOLUME 7.4 fL (7.4-10.4); MONOCYTES # (AUTO) 1.04 x10^3/uL (0.2-0.8); MONOCYTES % (AUTO) 13 % (2-9); NEUTROPHILS # (AUTO) 4.91 x10^3/uL (1.8-6.8); NEUTROPHILS % (AUTO) 60 % (42-75); PLATELET COUNT 379 x10^3/uL (130-400); RED BLOOD COUNT 4.34 x10^6/uL (4.38-5.82); RED CELL DISTRIBUTION WIDTH 18.8 % (9.4-14.8)
--- NOTE | 2019-01-26 05:21 | NUR ---
IV placed. blood draw. medicated for pain and nausea.
--- NOTE | 2019-01-26 05:22 | NUR ---
patient states pain down to 8/10 post medication.
[2019-01-26 05:30] LABS: ALANINE AMINOTRANSFERASE 29 U/L (12-78); ALBUMIN 3.4 g/dL (3.4-5.0); ANION GAP 13 mmol/L (5-15); CALCIUM 8.6 mg/dL (8.5-10.1); CHLORIDE 112 mmol/L (98-107); CREATININE 0.91 mg/dL (0.7-1.3)
[2019-01-26] MEDS ORDERED: MAALOX/HYOSCYAMINE/LIDOCAINE 45 ML BTL PO ONE (05:30)
[2019-01-26 05:33] LABS: ALKALINE PHOSPHATASE 117 U/L (45-117); BILIRUBIN,TOTAL 0.3 mg/dL (0.2-1.0); TOTAL PROTEIN 6.8 g/dL (6.4-8.2); TROPONIN I < 0.015 ng/mL (0.000-0.045)
[2019-01-26] MEDS ORDERED: POTASSIUM CHLORIDE 20 MEQ TAB.ER.PRT PO ONE (06:00)
[2019-01-26] MEDS ORDERED: POTASSIUM CHLORIDE 20 MEQ TAB.ER.PRT ONE (06:13)
[2019-01-26 06:23] VITALS: BP 137/75
--- NOTE | 2019-01-26 06:25 | NUR ---
ERP at bedside for re-evaluation. re-medicated for pain. IVF janeth.
[2019-01-26] MEDS ORDERED: SODIUM CHLORIDE 0.9%, 500ML IVBOLUS ONE ×2 (06:30)
[2019-01-26 06:39] LABS: ACETONE, SERUM Negative (Negative)
--- NOTE | 2019-01-26 07:10 | NUR ---
Pt resting in bed, alert. Call light in reach, Fluids complete. Report from LESTER Pak.
== END 2019-01-26 07:38 | disposition home or self-care (01) ==
LOC: ED 05:39
DX: K21.9 Gastro-esophageal reflux disease without esophagitis (principal); R07.89 Other chest pain; R11.2 Nausea with vomiting, unspecified; E78.5 Hyperlipidemia, unspecified; I10 Essential (primary) hypertension; I25.2 Old myocardial infarction; J44.9 Chronic obstructive pulmonary disease, unspecified; E11.9 Type 2 diabetes mellitus without complications; I25.10 Atherosclerotic heart disease of native coronary artery without angina pectoris
CPT/HCPCS: 36415; 71045; 80053; 82010; 83605; 83690; 83880; 84484; 85025; 93005; 96361; 96374; 96375; 96376; 99284; J2270; J2405; J7040

== ENCOUNTER 2019-02-13 19:54 | Emergency (ER) | payer OTHER, MEDICARE ==
[~2019-02-13] VITALS: Ht 175.3 cm; Wt 100.0 kg
[2019-02-13 23:18] VITALS: BP 152/65
== END 2019-02-13 23:35 ==
LOC: ED 21:53
DX: S06.891A Other specified intracranial injury with loss of consciousness of 30 minutes or less, initial encounter (principal); R07.89 Other chest pain; K21.9 Gastro-esophageal reflux disease without esophagitis; I10 Essential (primary) hypertension; J44.9 Chronic obstructive pulmonary disease, unspecified; I25.10 Atherosclerotic heart disease of native coronary artery without angina pectoris; E11.9 Type 2 diabetes mellitus without complications; Z95.0 Presence of cardiac pacemaker; F31.9 Bipolar disorder, unspecified; X58.XXXA Exposure to other specified factors, initial encounter; Y93.89 Activity, other specified; Y92.89 Other specified places as the place of occurrence of the external cause; Y99.8 Other external cause status
CPT/HCPCS: 36415; 70450; 71045; 72125; 80053; 84484; 85025; 85610; 85730; 93005; 96374; 96375; 96376; 99285; J2270; J2405

== ENCOUNTER 2019-02-26 16:47 | Inpatient (IN) | payer MEDICARE, OTHER ==
[~2019-02-26] VITALS: Ht 180.3 cm; Wt 100.4 kg
[2019-03-07 07:00] VITALS: BP 104/69
== END 2019-03-07 13:39 | DRG 552 ==
LOC: ED 20:55 → EDIP 21:00 → 3NE 22:12 → 4WST 03-04 18:41
PROVIDERS: ADMIT Internal Medicine; ATTEND Internal Medicine
DX: M51.36 Other intervertebral disc degeneration, lumbar region (principal); G45.9 Transient cerebral ischemic attack, unspecified; W18.2XXA Fall in (into) shower or empty bathtub, initial encounter; F20.9 Schizophrenia, unspecified; J44.9 Chronic obstructive pulmonary disease, unspecified; E11.9 Type 2 diabetes mellitus without complications; E66.9 Obesity, unspecified; Z68.30 Body mass index [BMI] 30.0-30.9, adult; E78.5 Hyperlipidemia, unspecified; F02.80 Dementia in other diseases classified elsewhere, unspecified severity, without behavioral disturbance, psychotic disturbance, mood disturbance, and anxiety; F10.10 Alcohol abuse, uncomplicated; F17.210 Nicotine dependence, cigarettes, uncomplicated; F31.9 Bipolar disorder, unspecified; G30.9 Alzheimer's disease, unspecified; G47.33 Obstructive sleep apnea (adult) (pediatric); G89.11 Acute pain due to trauma; G89.29 Other chronic pain; I10 Essential (primary) hypertension; I25.10 Atherosclerotic heart disease of native coronary artery without angina pectoris; I48.91 Unspecified atrial fibrillation; I49.5 Sick sinus syndrome; K21.9 Gastro-esophageal reflux disease without esophagitis; Y92.002 Bathroom of unspecified non-institutional (private) residence as the place of occurrence of the external cause; Z71.6 Tobacco abuse counseling; I25.2 Old myocardial infarction; Y93.E1 Activity, personal bathing and showering; Y93.89 Activity, other specified; Z79.891 Long term (current) use of opiate analgesic; Z88.6 Allergy status to analgesic agent; Z95.0 Presence of cardiac pacemaker; Z99.81 Dependence on supplemental oxygen; Z91.018 Allergy to other foods
CPT/HCPCS: 0399T; 36415; 70450; 70551; 72110; 72125; 72131; 72158; 80048; 80053; 81003; 82040; 82565; 84484; 85025; 93005; 93306; 93880; 96374; 96375; A9585; G0378; J1644; J1650; J1885; J7509; J1170; J2060; J2270; J3480

== ENCOUNTER 2019-06-21 22:27 | Emergency (ER) | payer SELFPAY ==
[~2019-06-21] VITALS: Ht 180.3 cm; Wt 98.0 kg
[~2019-06-21 22:27] MED LIST changes: +ACID1TAB7 PO; +ASPI81TA45 PO; +ATOR20TA37 PO; +CARB100T4 PO; -CARB200C PO; +CARB200C5 PO; +CLOP75TA PO; +FOLI-17 PO; +HYDR50CA2 PO; +LIDO700A20 TD; +LISI5TAB7 PO; +METH500T7 PO; +METO25TA35 PO; +MIRT-34 PO; -MIRT15TA4 PO; +NICO-486 TD; +POLY17PO5 PO; +SERT50TA28 PO; +THIA100T67 PO
[2019-06-21] MEDS ORDERED: MORPHINE SULFATE 4 MG/ML, 1ML ONE (22:57)
[2019-06-21] MEDS ORDERED: ONDANSETRON 2MG/ML, 2ML ONE (22:57)
[2019-06-21] MEDS ORDERED: MORPHINE SULFATE 4 MG/ML, 1ML IVPush PRN (23:00)
[2019-06-21] MEDS ORDERED: ONDANSETRON 2MG/ML, 2ML IVPush ONE (23:00)
[2019-06-21 23:17] LABS: ALBUMIN 3.6 g/dL (3.4-5.0); ANION GAP 8 mmol/L (5-15); CALCIUM 8.2 mg/dL (8.5-10.1); CHLORIDE 112 mmol/L (98-107); CREATININE 0.89 mg/dL (0.7-1.3)
--- NOTE | 2019-06-21 23:20 | NUR ---
UNABLE TO FIND SITE ON PT FOREARMS TO ATTEMPT IV. PT STATED HE GETS IVs IN HIS NECK ALL THE TIME AND CAN TRY THERE. DISCUSSED WITH ERP, WHO STATED CAN GIVE ORDERED MEDS IM AT THIS TIME. PT AGREEABLE TO THIS.
[2019-06-21 23:21] LABS: TROPONIN I < 0.015 ng/mL (0.000-0.045)
--- NOTE | 2019-06-21 23:56 | NUR ---
LAB IN TO REDRAW PT FOR CBC
--- NOTE | 2019-06-22 00:09 | NUR ---
PT RESTING IN BED WITH EYES CLOSED AT THIS TIME. NO STATED NEEDS. WILL CONTINUE TO MONITOR.
--- NOTE | 2019-06-22 00:15 | NUR ---
LAB CALLED TO STATE THEY NEED TO REDRAW PT AGAIN PLATELETS ARE NOT RESULTING AND BLOOD HAS CLUMPED IN COLLECTION TUBE
[2019-06-22 01:07] LABS: MEAN CORPUSCULAR HEMOGLOBIN 27.2 pg (27.5-34.5); MEAN CORPUSCULAR HGB CONC 31.9 g/dL (33.2-36.2); MEAN CORPUSCULAR VOLUME 85.1 fL (81-97); MEAN PLATELET VOLUME 8.4 fL (7.4-10.4); PLATELET COUNT 316 x10^3/uL (130-400); RED BLOOD COUNT 4.11 x10^6/uL (4.38-5.82); RED CELL DISTRIBUTION WIDTH 20.8 % (9.4-14.8)
[2019-06-22 01:08] LABS: MD YES
--- NOTE | 2019-06-22 01:21 | NUR ---
Break RN: ERP at bedside for re-evaluation.
[2019-06-22 01:36] LABS: BAND#(MANUAL) 0.07 x10^3/uL; BANDS%(MANUAL) 1 % (0-7); EOS#(MANUAL) 0.13 x10^3/uL (0.0-0.4); EOS% (MANUAL) 2 % (1-7); LYMPH#(MANUAL) 1.69 x10^3/uL (1-3.4); LYMPHS% (MANUAL) 26 % (22-44); MONOS#(MANUAL) 0.72 x10^3/uL (0.3-2.7); MONOS% (MANUAL) 11 % (2-9); MYELOCYTES# (MANUAL) 0.07 x10^3/uL (0-0); MYELOCYTES% (MANUAL) 1 % (0-0); SEG#(MANUAL) 3.84 x10^3/uL (1.8-6.8); SEGS% (MANUAL) 59 % (42-75)
[2019-06-22 01:39] LABS: ANISOCYTOSIS 1+; POLYCHROMASIA 1+
[2019-06-22 01:40] LABS: <PLATELET ESTIMATE> ADEQUATE; <PLT MORPHOLOGY> NORMAL PLT MORPH; HYPOCHROMIA 1+
[2019-06-22 02:08] VITALS: BP 131/102
== END 2019-06-22 02:09 | disposition home or self-care (01) ==
LOC: ED 23:24
DX: R07.89 Other chest pain (principal); J44.9 Chronic obstructive pulmonary disease, unspecified; I25.10 Atherosclerotic heart disease of native coronary artery without angina pectoris; K21.9 Gastro-esophageal reflux disease without esophagitis; E78.5 Hyperlipidemia, unspecified; I10 Essential (primary) hypertension; I25.2 Old myocardial infarction; E11.9 Type 2 diabetes mellitus without complications
CPT/HCPCS: 36415; 71045; 80048; 82040; 84484; 85025; 93005; 96374; 96375; 99284; J2270; J2405

== ENCOUNTER 2019-09-08 00:41 | Emergency (ER) | payer OTHER ==
[~2019-09-08] VITALS: Ht 180.3 cm; Wt 106.8 kg
[~2019-09-08 00:41] MED LIST changes: -HYDR50TA13 PO; +HYDR50TA99 PO; -TRAZ-137 PO; +TRAZ-175 PO
[2019-09-08] MEDS ORDERED: SODIUM CHLORIDE FLUSH 10ML SYR IVF ONE (01:00)
[2019-09-08 01:02] LABS: BASOPHILS # (AUTO) 0.06 x10^3/uL (0-0.1); BASOPHILS % (AUTO) 1 % (0-1); EOSINOPHILS # (AUTO) 0.28 x10^3/uL (0-0.4); EOSINOPHILS % (AUTO) 4 % (1-7); LYMPHOCYTES # (AUTO) 1.29 x10^3/uL (1-3.4); LYMPHOCYTES % (AUTO) 17 % (22-44); MD NO; MEAN CORPUSCULAR HEMOGLOBIN 28.8 pg (27.5-34.5); MEAN CORPUSCULAR HGB CONC 32.5 g/dL (33.2-36.2); MEAN CORPUSCULAR VOLUME 88.8 fL (81-97); MEAN PLATELET VOLUME 8.1 fL (7.4-10.4); MONOCYTES # (AUTO) 0.81 x10^3/uL (0.2-0.8); MONOCYTES % (AUTO) 11 % (2-9); NEUTROPHILS # (AUTO) 5.06 x10^3/uL (1.8-6.8); NEUTROPHILS % (AUTO) 67 % (42-75); PLATELET COUNT 304 x10^3/uL (130-400); RED BLOOD COUNT 4.38 x10^6/uL (4.38-5.82); RED CELL DISTRIBUTION WIDTH 19.5 % (9.4-14.8)
[2019-09-08 01:13] LABS: ALANINE AMINOTRANSFERASE 43 U/L (12-78); ALBUMIN 3.4 g/dL (3.4-5.0); ANION GAP 7 mmol/L (5-15); CALCIUM 8.1 mg/dL (8.5-10.1); CHLORIDE 109 mmol/L (98-107)
[2019-09-08 01:18] LABS: ALKALINE PHOSPHATASE 131 U/L (45-117); BILIRUBIN,TOTAL 0.2 mg/dL (0.2-1.0); CREATININE 1.06 mg/dL (0.7-1.3); TROPONIN I < 0.015 ng/mL (0.000-0.045)
[2019-09-08] MEDS ORDERED: ACETAMINOPHEN 325 MG TABLET ONE (01:30)
[2019-09-08] MEDS ORDERED: ACETAMINOPHEN 325 MG TABLET PO ONE (01:30)
--- NOTE | 2019-09-08 03:18 | NUR ---
Pt reporting no change in pain after Tylenol. Pt stated morphine "usually helps".
[2019-09-08 04:15] LABS: TROPONIN I < 0.015 ng/mL (0.000-0.045)
[2019-09-08 04:55] VITALS: BP 137/87
== END 2019-09-08 04:58 | disposition home or self-care (01) ==
LOC: ED 01:19
DX: R07.2 Precordial pain (principal); I10 Essential (primary) hypertension; E11.9 Type 2 diabetes mellitus without complications; J44.9 Chronic obstructive pulmonary disease, unspecified; I25.10 Atherosclerotic heart disease of native coronary artery without angina pectoris; K21.9 Gastro-esophageal reflux disease without esophagitis; E78.5 Hyperlipidemia, unspecified; F17.200 Nicotine dependence, unspecified, uncomplicated; Z95.0 Presence of cardiac pacemaker
CPT/HCPCS: 36415; 71045; 80053; 83880; 84484; 85025; 93005; 99285

== ENCOUNTER 2020-01-28 11:46 | Emergency (ER) | payer SELFPAY ==
[~2020-01-28] VITALS: Ht 180.3 cm; Wt 114.5 kg
[2020-01-28 11:51] VITALS: BP 127/72
[2020-01-28] MEDS ORDERED: OXYcodone/APAP 5/325MG TABLET ONE (12:15)
--- NOTE | 2020-01-28 12:23 | NUR ---
BREAK RN: PT MEDICATED PER MAR
[2020-01-28] MEDS ORDERED: OXYcodone/APAP 5/325MG TABLET PO ONE (12:30)
--- NOTE | 2020-01-28 12:49 | NUR ---
PT TO XRAY AT THIS TIME.
--- NOTE | 2020-01-28 14:04 | NUR ---
Patient given discharge instructions and they have confirmed that they understand the instructions.
== END 2020-01-28 14:05 ==
LOC: ED 13:59
DX: S39.012A Strain of muscle, fascia and tendon of lower back, initial encounter (principal); G89.29 Other chronic pain; M25.531 Pain in right wrist; M25.532 Pain in left wrist; F17.290 Nicotine dependence, other tobacco product, uncomplicated; W01.0XXA Fall on same level from slipping, tripping and stumbling without subsequent striking against object, initial encounter; Y93.89 Activity, other specified; Y92.098 Other place in other non-institutional residence as the place of occurrence of the external cause; Y99.8 Other external cause status
CPT/HCPCS: 72110; 99284

== ENCOUNTER 2020-08-31 23:25 | Emergency (ER) | payer OTHER ==
[~2020-08-31] VITALS: Ht 180.3 cm; Wt 118.0 kg
[~2020-08-31 23:25] MED LIST changes: +ASPI-1026 PO; -ASPI-515 PO; -ASPI-650 PO; +ASPI-963 PO; +ATOR-2 PO; -CYCL-259 PO; +CYCL10TA2 PO; -FOLI-17 PO; +FOLI1TAB32 PO; +HYDR-1067 PO; -HYDR-3240 PO; -LISI-424 PO; +LISI-606 PO; +METH-639 PO; -METH500T7 PO; -NICO-487 TD; +NICO-587 TD; -OXYC-307 PO; +OXYC-380 PO; -OXYC-432 PO; +OXYC1TAB18 PO
[2020-08-31] MEDS ORDERED: PLEASE ENTER HEIGHT AND WEIGHT MC SCH (23:45)
--- NOTE | 2020-08-31 23:45 | NUR ---
Patient BIB ambulance c/o resp symptoms and CP. Patient tested +COVID yesterday. C/o fatigue, SOB, CP, vomiting with bright blood, fever at home. Patient is on 2lpm O2 via [place] at home. RA sat 89%. Patient was admitted with COVID x3 weeks ago. He was admitted and intubated x1 week and d/c x2 weeks ago. Patient states he has a swollen abdomen which started last night. Patient is in obvious distress. Respirations labored. Abd swollen.
[2020-08-31] MEDS ORDERED: ALBUTEROL/IPRATROPIUM 2.5MG/0.5MG, 3 ML ONE (23:58)
[2020-08-31] MEDS ORDERED: DEXAMETHASONE 4 MG TABLET ONE (23:58)
[2020-09-01] MEDS ORDERED: SODIUM CHLORIDE FLUSH 10ML SYR IVF ONE
[2020-09-01] MEDS ORDERED: ALBUTEROL/IPRATROPIUM 2.5MG/0.5MG, 3 ML NPPB ONE
[2020-09-01] MEDS ORDERED: DEXAMETHASONE 4 MG TABLET PO ONE
[2020-09-01 00:23] LABS: BASOPHILS % (AUTO) 1 % (0-1); EOSINOPHILS % (AUTO) 2 % (1-7); LYMPHOCYTES % (AUTO) 24 % (22-44); MEAN CORPUSCULAR HEMOGLOBIN 33.4 pg (27.5-34.5); MEAN CORPUSCULAR HGB CONC 34.1 g/dL (33.2-36.2); MEAN PLATELET VOLUME 8.2 fL (7.4-10.4); MONOCYTES % (AUTO) 8 % (2-9); NEUTROPHILS % (AUTO) 65 % (42-75); PLATELET COUNT 283 x10^3/uL (130-400); RED BLOOD COUNT 4.14 x10^6/uL (4.38-5.82); RED CELL DISTRIBUTION WIDTH 14.1 % (9.4-14.8)
[2020-09-01 00:27] LABS: MD NO
[2020-09-01 00:31] LABS: ALANINE AMINOTRANSFERASE 34 U/L (12-78); ALBUMIN 3.5 g/dL (3.4-5.0); ANION GAP 10 mmol/L (5-15); CALCIUM 8.4 mg/dL (8.5-10.1); CHLORIDE 110 mmol/L (98-107)
[2020-09-01 00:35] LABS: ALKALINE PHOSPHATASE 134 U/L (45-117); BILIRUBIN,TOTAL 0.2 mg/dL (0.2-1.0); TOTAL PROTEIN 7.5 g/dL (6.4-8.2); TROPONIN I < 0.015 ng/mL (0.000-0.045)
[2020-09-01] MEDS ORDERED: ACETAMINOPHEN 325 MG TABLET ONE (01:02)
[2020-09-01] MEDS ORDERED: ACETAMINOPHEN 325 MG TABLET PO ONE (01:30)
[2020-09-01 02:00] VITALS: BP 122/85
--- NOTE | 2020-09-01 02:01 | NUR ---
TP: ATTEMPTED TO OBTAIN O2 TANK TO DISCHARGE OF PT. CALLED [facility] AND THEY ARE UNABLE TO POVIDE JUST A TANK. THEY NEED TO PROVIDE CONCENTRATOR AND TANK. [facility]
--- NOTE | 2020-09-01 02:48 | NUR ---
Spoke to Camilla from [facility], apple picker time set for 03:15 am.
== END 2020-09-01 00:49 | disposition home or self-care (01) ==
LOC: ED 23:55
DX: U07.1 COVID-19 (principal); J44.1 Chronic obstructive pulmonary disease with (acute) exacerbation; B34.9 Viral infection, unspecified; R06.00 Dyspnea, unspecified; R05 Cough; I25.2 Old myocardial infarction; R94.31 Abnormal electrocardiogram [ECG] [EKG]; K21.9 Gastro-esophageal reflux disease without esophagitis; I11.9 Hypertensive heart disease without heart failure; Z86.73 Personal history of transient ischemic attack (TIA), and cerebral infarction without residual deficits; Z95.0 Presence of cardiac pacemaker
CPT/HCPCS: 36415; 71045; 80053; 83880; 84484; 85025; 93005; 94640; 99285

== ENCOUNTER 2020-09-28 16:04 | Emergency (ER) | payer OTHER ==
[~2020-09-28] VITALS: Ht 180.3 cm; Wt 113.5 kg
[~2020-09-28 16:04] MED LIST changes: -FOLI0.8T2 PO; +FOLI0.8T5 PO
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
--- NOTE | 2020-09-28 16:37 | NUR ---
MD Pittman at bedside for eval.
[2020-09-28 16:50] LABS: MEAN CORPUSCULAR HEMOGLOBIN 33.1 pg (27.5-34.5); MEAN CORPUSCULAR HGB CONC 33.9 g/dL (33.2-36.2); MEAN PLATELET VOLUME 7.9 fL (7.4-10.4); PLATELET COUNT 277 x10^3/uL (130-400); RED BLOOD COUNT 3.86 x10^6/uL (4.38-5.82); RED CELL DISTRIBUTION WIDTH 13.7 % (9.4-14.8)
[2020-09-28 17:01] LABS: ALANINE AMINOTRANSFERASE 55 U/L (12-78); ALBUMIN 3.4 g/dL (3.4-5.0); ANION GAP 10 mmol/L (5-15); CALCIUM 8.4 mg/dL (8.5-10.1); CHLORIDE 107 mmol/L (98-107); CREATININE 1.07 mg/dL (0.7-1.3)
[2020-09-28 17:02] LABS: INTERNATIONAL NORMALIZED RATIO 1.02 (0.93-1.1); PROTHROMBIN TIME 10.9 Seconds (9.6-11.5)
[2020-09-28 17:05] LABS: ALKALINE PHOSPHATASE 129 U/L (45-117); BILIRUBIN,TOTAL 0.3 mg/dL (0.2-1.0); TOTAL PROTEIN 7.1 g/dL (6.4-8.2); TROPONIN I < 0.015 ng/mL (0.000-0.045)
[2020-09-28 17:21] LABS: MD YES
[2020-09-28 17:27] LABS: <PLATELET ESTIMATE> ADEQUATE; <RBC MORPHOLOGY> NORMAL; BAND#(MANUAL) 0.21 x10^3/uL; BANDS%(MANUAL) 2 % (0-7); BASOS% (MANUAL) 1 % (0-1); EOS#(MANUAL) 0.52 x10^3/uL (0.0-0.4); EOS% (MANUAL) 5 % (1-7); LYMPH#(MANUAL) 2.81 x10^3/uL (1-3.4); LYMPHS% (MANUAL) 27 % (22-44); METAMYELOCYTES% (MANUAL) 1 % (0-1); MONOS#(MANUAL) 0.73 x10^3/uL (0.3-2.7); MONOS% (MANUAL) 7 % (2-9); MYELOCYTES% (MANUAL) 1 % (0-0); PMNS WITH VACUOLES 1+; SEG#(MANUAL) 5.82 x10^3/uL (1.8-6.8); SEGS% (MANUAL) 56 % (42-75)
[2020-09-28 17:28] LABS: <PLT MORPHOLOGY> NORMAL PLT MORPH
[2020-09-28] MEDS ORDERED: SODIUM CHLORIDE 0.9%, 500ML IVBOLUS ONE (17:30)
--- NOTE | 2020-09-28 17:37 | NUR ---
Pt sitting in bed, watching TV. Call light in reach. Fluids still infusing.
[2020-09-28] MEDS ORDERED: ONDANSETRON 2MG/ML, 2ML IVPush ONE (18:00)
[2020-09-28] MEDS ORDERED: ONDANSETRON 2MG/ML, 2ML ONE (18:11)
[2020-09-28] MEDS ORDERED: MORPHINE SULFATE 4 MG/ML, 1ML ONE (18:12)
[2020-09-28] MEDS: MORPHINE SULFATE 4 MG/ML, 1ML IVPush PRN ×2 (18:16→18:29)
--- NOTE | 2020-09-28 19:07 | NUR ---
Pt passed roadtest, with baseline O2 and walker. Bedside report to LESTER Bates.
--- NOTE | 2020-09-28 19:40 | NUR ---
Report from LESTER Villarreal. Assumed care.
--- NOTE | 2020-09-28 20:07 | NUR ---
Pt has been cleared by Dr. Pittman to be discharged, Dr. Pittman explained to pt that he does not meet criteria to be admitted. Pt hesistant about going home- this red hat linux engineer with him, pt reports he lives alone and is mainly concerned about his lynn. Requesting pain meds at this time and requesting RX for pain meds. Informing Dr. Pittman.
[2020-09-28] MEDS ORDERED: AMOXICILLIN 500 MG CAPSULE PO ONE (21:00)
[2020-09-28] MEDS ORDERED: OXYcodone/APAP 10/325MG TABLET PO ONE (21:00)
[2020-09-28] MEDS ORDERED: AZITHROMYCIN 500 MG TABLET PO ONE (21:00)
[2020-09-28] MEDS ORDERED: AZITHROMYCIN 250 MG TABLET ONE (21:06)
[2020-09-28] MEDS ORDERED: AMOXICILLIN 500 MG CAPSULE ONE (21:06)
[2020-09-28] MEDS ORDERED: OXYcodone/APAP 10/325MG TABLET ONE (21:06)
--- NOTE | 2020-09-28 21:10 | NUR ---
Medicated per eMAR. Arranging ride home via [facility] for pt as he does not have any home oxygen with him and is dependent on 5L.
--- NOTE | 2020-09-28 22:03 | NUR ---
[facility] is denying transporting pt. Talked to Doctor Dave and called taxi service and can send pt in taxi to home with [facility]'s oxygen tank and coal tram driver will bring oxygen tank back to hospital. Dr. Dave aware of and approves of this plan. Pt agrees with and understands plan. IV removed, catheter intact, hemostasis achieved, dressing applied.
[2020-09-28 22:05] VITALS: BP 122/76
--- NOTE | 2020-09-28 22:19 | NUR ---
[facility] called by this RN and given instructions about taking pt with oxygen to his home and bringing oxygen back to [place]. 2 [facility] vouchers provided for this purchase. Expained this plan to pt as well and this RN walked him out.
== END 2020-09-28 22:21 | disposition home or self-care (01) ==
LOC: ED 18:15
DX: J15.9 Unspecified bacterial pneumonia (principal); R07.89 Other chest pain; R11.2 Nausea with vomiting, unspecified; J44.9 Chronic obstructive pulmonary disease, unspecified; I25.10 Atherosclerotic heart disease of native coronary artery without angina pectoris; I25.2 Old myocardial infarction; K21.9 Gastro-esophageal reflux disease without esophagitis; E78.5 Hyperlipidemia, unspecified; Z88.0 Allergy status to penicillin; Z88.6 Allergy status to analgesic agent; Z88.5 Allergy status to narcotic agent
CPT/HCPCS: 36415; 71045; 80053; 83880; 84484; 85025; 85610; 85730; 93005; 96361; 96374; 96375; 99285; J2270; J2405; J7040